=== PATIENT | female | born 1955 | race Caucasian/White ===

== ENCOUNTER 2018-10-24 06:50 | Inpatient (IN) | payer MEDICAID ==
[2018-10-24] MEDS: morphine 4 MG/ML VIAL IV (07:16)
[2018-10-24] MEDS: ONDANSETRON 4 MG INJ IV (07:16)
[2018-10-24] MEDS: KETOROLAC 15 MG INJ IV (08:20)
[2018-10-24] MEDS: DIAZEPAM 10 MG/2 ML SYG IV (08:20)
[2018-10-24] MEDS ORDERED: morphine 2 MG INJ IV (09:30)
[2018-10-24] MEDS ORDERED: ONDANSETRON 4 MG INJ IV (09:30)
[2018-10-24] MEDS ORDERED: ACETAMINOPHEN 325 MG TAB PO (09:30)
[2018-10-24] MEDS ORDERED: SODIUM CHLORIDE 0.9% 1L BAG IV (11:30)
[2018-10-24] MEDS: METHYLPREDNISOLONE 40 MG INJ IV ×2 (12:30→20:22)
[2018-10-24] MEDS: LIDOCAINE 5% PATCH TD (12:30)
[2018-10-24] MEDS: BACLOFEN 10 MG TAB PO ×2 (12:30→20:21)
[2018-10-24] MEDS: HYDROCODONE/APAP (5/325) TAB PO ×2 (12:31→20:00)
[2018-10-24] MEDS: FAMOTIDINE 20 MG TAB PO (20:21)
[2018-10-24] MEDS: HEPARIN 5,000 UNIT/1 ML VIAL SC (20:22)
[2018-10-24] MEDS: hydrALAzine 20 MG INJ IV (20:29)
[2018-10-24] MEDS: AMLODIPINE 10 MG TAB PO (23:28)
[2018-10-25] MEDS: BACLOFEN 10 MG TAB PO ×3 (08:54→20:33)
[2018-10-25] MEDS: FAMOTIDINE 20 MG TAB PO ×2 (08:54→20:33)
[2018-10-25] MEDS: METHYLPREDNISOLONE 40 MG INJ IV ×2 (08:54→20:32)
[2018-10-25] MEDS: HYDROCODONE/APAP (5/325) TAB PO (08:54)
[2018-10-25] MEDS: HEPARIN 5,000 UNIT/1 ML VIAL SC ×2 (08:55→20:37)
[2018-10-25] MEDS: LIDOCAINE 5% PATCH TD (08:56)
[2018-10-25] MEDS: AMLODIPINE 5 MG TAB PO ×2 (10:21→20:33)
[2018-10-25] MEDS: DOCUSATE SODIUM 100 MG CAP PO (12:04)
[2018-10-25] MEDS: hydrALAzine 20 MG INJ IV (13:57)
[2018-10-25] MEDS: ONDANSETRON 4 MG INJ IV (20:50)
[2018-10-26] MEDS: AMLODIPINE 5 MG TAB PO ×3 (08:37→20:35)
[2018-10-26] MEDS: FAMOTIDINE 20 MG TAB PO (08:38)
[2018-10-26] MEDS: BACLOFEN 10 MG TAB PO ×3 (08:38→15:48)
[2018-10-26] MEDS: METHYLPREDNISOLONE 40 MG INJ IV (08:38)
[2018-10-26] MEDS: ONDANSETRON 4 MG INJ IV (08:38)
[2018-10-26] MEDS: HEPARIN 5,000 UNIT/1 ML VIAL SC ×2 (08:38→20:37)
[2018-10-26] MEDS: LIDOCAINE 5% PATCH TD (08:39)
[2018-10-26] MEDS: ASPIRIN 81 MG TAB PO ×2 (09:30→15:47)
[2018-10-26] MEDS: ATORVASTATIN 80 MG TAB PO ×2 (09:30→15:47)
[2018-10-26] MEDS: CLOPIDOGREL 75 MG TAB PO ×2 (09:30→15:48)
[2018-10-26] MEDS: CALCITRIOL 0.25 MCG CAP PO ×2 (09:30→15:48)
[2018-10-26] MEDS ORDERED: ARTIFICIAL TEARS 15 ML OPH BOTH EYES (11:00)
[2018-10-26] MEDS: METOCLOPRAMIDE 5 MG TAB PO ×3 (11:30→17:30)
[2018-10-26] MEDS ORDERED: morphine 2 MG INJ IV (13:30)
[2018-10-26] MEDS: FLUTICASONE/VILANTEROL 100-25 INH (15:46)
[2018-10-26] MEDS: CYCLOBENZAPRINE 10 MG TAB PO (20:34)
[2018-10-26] MEDS ORDERED: BACLOFEN 10 MG TAB PO (21:00)
[2018-10-27] MEDS: CALCITRIOL 0.25 MCG CAP PO (08:16)
[2018-10-27] MEDS: METOCLOPRAMIDE 5 MG TAB PO (08:16)
[2018-10-27] MEDS: ASPIRIN 81 MG TAB PO (08:16)
[2018-10-27] MEDS: CYCLOBENZAPRINE 10 MG TAB PO ×2 (08:16→13:26)
[2018-10-27] MEDS: ATORVASTATIN 80 MG TAB PO (08:16)
[2018-10-27] MEDS: CLOPIDOGREL 75 MG TAB PO (08:16)
[2018-10-27] MEDS: FAMOTIDINE 20 MG TAB PO (08:16)
[2018-10-27] MEDS: PREGABALIN 50 MG CAP PO (08:16)
[2018-10-27] MEDS: AMLODIPINE 5 MG TAB PO ×2 (08:16→20:36)
[2018-10-27] MEDS: HEPARIN 5,000 UNIT/1 ML VIAL SC ×2 (08:17→20:37)
[2018-10-27] MEDS: METHYLPREDNISOLONE 40 MG INJ IV (08:17)
[2018-10-27] MEDS: LIDOCAINE 5% PATCH TD (08:20)
[2018-10-27] MEDS: FLUTICASONE/VILANTEROL 100-25 INH (08:22)
[2018-10-27] MEDS: MAGNESIUM SULFATE 2 GM/50 ML 50 ML IVPB (11:58)
[2018-10-28] MEDS: traMADol 50 MG TAB PO (07:44)
[2018-10-28] MEDS: FLUTICASONE/VILANTEROL 100-25 INH (08:27)
[2018-10-28] MEDS: FAMOTIDINE 20 MG TAB PO (08:28)
[2018-10-28] MEDS: ATORVASTATIN 80 MG TAB PO (08:28)
[2018-10-28] MEDS: LORAZEPAM 0.5 MG TAB PO (08:28)
[2018-10-28] MEDS: METHYLPREDNISOLONE 40 MG INJ IV (08:28)
[2018-10-28] MEDS: CALCITRIOL 0.25 MCG CAP PO (08:28)
[2018-10-28] MEDS: HYDROCODONE/APAP (5/325) TAB PO (08:28)
[2018-10-28] MEDS: ASPIRIN 81 MG TAB PO (08:28)
[2018-10-28] MEDS: PREGABALIN 50 MG CAP PO (08:28)
[2018-10-28] MEDS: CLOPIDOGREL 75 MG TAB PO (08:28)
[2018-10-28] MEDS: HEPARIN 5,000 UNIT/1 ML VIAL SC ×2 (08:33→20:25)
[2018-10-28] MEDS: LIDOCAINE 5% PATCH TD (09:00)
[2018-10-28] MEDS: AMLODIPINE 5 MG TAB PO ×2 (14:13→20:24)
[2018-10-28] MEDS: TIZANIDINE 4 MG TAB PO (20:24)
[2018-10-28] MEDS: LOPERAMIDE 2 MG CAP PO (22:44)
[2018-10-29] MEDS: CALCITRIOL 0.25 MCG CAP PO (08:33)
[2018-10-29] MEDS: CLOPIDOGREL 75 MG TAB PO (08:33)
[2018-10-29] MEDS: PREGABALIN 50 MG CAP PO ×2 (08:34→08:50)
[2018-10-29] MEDS: TIZANIDINE 4 MG TAB PO ×2 (08:34→12:19)
[2018-10-29] MEDS: FAMOTIDINE 20 MG TAB PO (08:34)
[2018-10-29] MEDS: ASPIRIN 81 MG TAB PO (08:34)
[2018-10-29] MEDS: AMLODIPINE 5 MG TAB PO ×2 (08:34→21:01)
[2018-10-29] MEDS: ATORVASTATIN 80 MG TAB PO (08:34)
[2018-10-29] MEDS: HEPARIN 5,000 UNIT/1 ML VIAL SC ×2 (08:37→21:04)
[2018-10-29] MEDS: LIDOCAINE 5% PATCH TD ×2 (08:39→12:48)
[2018-10-29] MEDS: FLUTICASONE/VILANTEROL 100-25 INH (08:39)
[2018-10-29] MEDS: METHYLPREDNISOLONE 40 MG INJ IV (08:45)
[2018-10-29] MEDS ORDERED: LIDOCAINE 5% PATCH TD (11:00)
[2018-10-29] MEDS: HYDROCODONE/APAP (5/325) TAB PO (12:19)
[2018-10-29] MEDS: LOPERAMIDE 2 MG CAP PO (12:45)
[2018-10-29] MEDS ORDERED: TIZANIDINE 4 MG TAB PO (13:00)
[2018-10-29] MEDS: METHOCARBAMOL 500 MG TAB PO ×2 (13:56→21:00)
[2018-10-30] MEDS: LOPERAMIDE 2 MG CAP PO ×2 (02:37→09:12)
[2018-10-30] MEDS: SOD CHLORIDE 0.9% 250 ML IV (03:07)
[2018-10-30] MEDS: AL HYDROX/MG HYDROX/SIMETH 30 ML CUP PO (06:05)
[2018-10-30] MEDS: GUAIFENESIN/CODEINE 5ML CUP PO ×2 (06:05→14:28)
[2018-10-30] MEDS: CLOPIDOGREL 75 MG TAB PO (09:03)
[2018-10-30] MEDS: ASPIRIN 81 MG TAB PO (09:03)
[2018-10-30] MEDS: FLUTICASONE/VILANTEROL 100-25 INH (09:03)
[2018-10-30] MEDS: CALCITRIOL 0.25 MCG CAP PO (09:03)
[2018-10-30] MEDS: METHOCARBAMOL 500 MG TAB PO (09:03)
[2018-10-30] MEDS: ATORVASTATIN 80 MG TAB PO (09:03)
[2018-10-30] MEDS: FAMOTIDINE 20 MG TAB PO (09:03)
[2018-10-30] MEDS: METHYLPREDNISOLONE 40 MG INJ IV (09:04)
[2018-10-30] MEDS: AMLODIPINE 5 MG TAB PO ×2 (09:04→21:34)
[2018-10-30] MEDS: HEPARIN 5,000 UNIT/1 ML VIAL SC ×2 (09:05→21:37)
[2018-10-30] MEDS: LIDOCAINE 5% PATCH TD ×2 (09:06→14:15)
[2018-10-30] MEDS: LORAZEPAM 0.5 MG TAB PO (09:12)
[2018-10-30] MEDS: DICLOFENAC SODIUM 1% GEL 100 GM TUBE TP ×4 (14:15→21:35)
[2018-10-30] MEDS: traMADol 50 MG TAB PO (17:50)
[2018-10-31] MEDS: GUAIFENESIN/CODEINE 5ML CUP PO (02:03)
[2018-10-31] MEDS: AL HYDROX/MG HYDROX/SIMETH 30 ML CUP PO ×2 (02:03→20:40)
[2018-10-31] MEDS: FLUTICASONE/VILANTEROL 100-25 INH (09:02)
[2018-10-31] MEDS: CALCIUM GLUCONATE 10% 1 GM in DEXTROSE 5% 100 ML IVPB (09:02)
[2018-10-31] MEDS: CALCITRIOL 0.25 MCG CAP PO ×2 (09:03→14:05)
[2018-10-31] MEDS: ASPIRIN 81 MG TAB PO (09:04)
[2018-10-31] MEDS: CLOPIDOGREL 75 MG TAB PO (09:04)
[2018-10-31] MEDS: ATORVASTATIN 80 MG TAB PO (09:04)
[2018-10-31] MEDS: MULTIVIT/CA CARB/B CMPLX/FA TAB PO (09:04)
[2018-10-31] MEDS: FAMOTIDINE 20 MG TAB PO (09:04)
[2018-10-31] MEDS: predniSONE 20 MG TAB PO (09:04)
[2018-10-31] MEDS: AMLODIPINE 5 MG TAB PO ×2 (09:05→20:33)
[2018-10-31] MEDS: HEPARIN 5,000 UNIT/1 ML VIAL SC ×2 (09:08→20:35)
[2018-10-31] MEDS: DICLOFENAC SODIUM 1% GEL 100 GM TUBE TP ×4 (09:09→20:36)
[2018-10-31] MEDS: traMADol 50 MG TAB PO ×2 (12:29→20:33)
[2018-10-31] MEDS: LIDOCAINE 5% PATCH TD ×2 (12:30→12:31)
[2018-10-31] MEDS: GABAPENTIN 100 MG CAP PO (20:33)
[2018-11-01] MEDS: hydrALAzine 20 MG INJ IV (02:40)
[2018-11-01] MEDS: MULTIVIT/CA CARB/B CMPLX/FA TAB PO (08:47)
[2018-11-01] MEDS: CLOPIDOGREL 75 MG TAB PO (08:47)
[2018-11-01] MEDS: FLUTICASONE/VILANTEROL 100-25 INH (08:48)
[2018-11-01] MEDS: GABAPENTIN 100 MG CAP PO ×2 (08:48→22:11)
[2018-11-01] MEDS: FAMOTIDINE 20 MG TAB PO (08:48)
[2018-11-01] MEDS: AMLODIPINE 5 MG TAB PO ×2 (08:48→22:10)
[2018-11-01] MEDS: ATORVASTATIN 80 MG TAB PO (08:48)
[2018-11-01] MEDS: ASPIRIN 81 MG TAB PO (08:48)
[2018-11-01] MEDS: GUAIFENESIN/CODEINE 5ML CUP PO (08:48)
[2018-11-01] MEDS: predniSONE 10 MG TAB PO (08:48)
[2018-11-01] MEDS: HEPARIN 5,000 UNIT/1 ML VIAL SC ×2 (08:49→22:12)
[2018-11-01] MEDS: LIDOCAINE 5% PATCH TD ×2 (08:50→08:51)
[2018-11-01] MEDS: DICLOFENAC SODIUM 1% GEL 100 GM TUBE TP ×4 (08:56→22:13)
[2018-11-01] MEDS: CALCITRIOL 0.25 MCG CAP PO (08:56)
[2018-11-01] MEDS: traMADol 50 MG TAB PO (19:55)
[2018-11-01] MEDS: ONDANSETRON 4 MG INJ IV (19:55)
[2018-11-01] MEDS: MAGNESIUM HYDROXIDE 30ML CUP PO (20:52)
[2018-11-01] MEDS: MIRTAZAPINE 15 MG TAB PO (22:10)
[2018-11-01] MEDS: CEFEPIME 1GM/50 ML (PMX) 50 ML IVPB (22:10)
[2018-11-01] MEDS ORDERED: [UNRECOGNIZED DRUG - REMARK] XX (23:45)
[2018-11-02] MEDS: DOCUSATE SODIUM 100 MG CAP PO (02:55)
[2018-11-02] MEDS: AL HYDROX/MG HYDROX/SIMETH 30 ML CUP PO (04:24)
[2018-11-02] MEDS ORDERED: BISACODYL (EC) 5 MG TAB PO (04:30)
[2018-11-02] MEDS: [UNRECOGNIZED DRUG - REMARK] XX ×2 (05:08→18:00)
[2018-11-02] MEDS: traMADol 50 MG TAB PO (08:57)
[2018-11-02] MEDS: LIDOCAINE 5% PATCH TD ×2 (08:58→09:00)
[2018-11-02] MEDS: CALCITRIOL 0.25 MCG CAP PO (09:00)
[2018-11-02] MEDS: AMLODIPINE 5 MG TAB PO ×2 (09:00→21:00)
[2018-11-02] MEDS: HEPARIN 5,000 UNIT/1 ML VIAL SC ×2 (09:00→21:00)
[2018-11-02] MEDS: FLUTICASONE/VILANTEROL 100-25 INH (09:00)
[2018-11-02] MEDS: DICLOFENAC SODIUM 1% GEL 100 GM TUBE TP ×4 (09:00→21:00)
[2018-11-02] MEDS: GABAPENTIN 100 MG CAP PO ×2 (09:00→21:00)
[2018-11-02] MEDS: ATORVASTATIN 80 MG TAB PO (09:00)
[2018-11-02] MEDS: ASPIRIN 81 MG TAB PO (09:00)
[2018-11-02] MEDS: FAMOTIDINE 20 MG TAB PO (09:00)
[2018-11-02] MEDS: MULTIVIT/CA CARB/B CMPLX/FA TAB PO (09:00)
[2018-11-02] MEDS: CLOPIDOGREL 75 MG TAB PO (09:00)
[2018-11-02] MEDS ORDERED: LEVOFLOXACIN 750 MG TABLET PO (10:00)
[2018-11-02] MEDS: predniSONE 20 MG TAB PO (10:30)
[2018-11-02] MEDS: PIPER-TAZO 2.25 GM (PMX) 50 ML IVPB ×2 (11:32→15:38)
[2018-11-02] MEDS: DEXTROSE 5%-0.45% NACL 1,000 ML IV (12:43)
[2018-11-02] MEDS ORDERED: ALBUTEROL/IPRATROPIUM (NEB) 3 ML AMP HHN (13:30)
[2018-11-02] MEDS: ALBUTEROL/IPRATROPIUM (NEB) 3 ML AMP HHN ×2 (14:00→20:00)
[2018-11-02] MEDS: ACETAMINOPHEN 1000MG/100ML IV 100 ML IVPB (14:15)
[2018-11-02] MEDS: IODIXANOL LOCM 100 ML BTL (16:47)
[2018-11-02] MEDS: SOD CHLORIDE 0.9% 100 ML (16:47)
[2018-11-02] MEDS ORDERED: MIDAZOLAM 1 MG/ML 2 ML INJ ×2 (20:14→20:15)
[2018-11-02] MEDS ORDERED: CEFEPIME 1GM/50 ML (PMX) 50 ML IVPB (21:00)
[2018-11-02] MEDS ORDERED: CEFEPIME HCL 0.5 GM in SOD CHLORIDE 0.9% 50 ML IVPB (21:00)
[2018-11-02] MEDS ORDERED: LIDOCAINE 2% (SDV) 5 ML INJ (22:59)
[2018-11-02] MEDS ORDERED: ETOMIDATE 20 MG INJ (22:59)
[2018-11-02] MEDS ORDERED: NEOSTIGMINE 3 MG/3 ML SYRINGE (22:59)
[2018-11-02] MEDS ORDERED: GLYCOPYRROLATE 0.4 MG INJ (22:59)
[2018-11-02] MEDS ORDERED: ROCURONIUM 50 MG INJ (22:59)
[2018-11-02] MEDS ORDERED: CEFAZOLIN 1 GM INJ (23:00)
[2018-11-02] MEDS ORDERED: metroNIDAZOLE 500 MG/NS (PMX) 100 ML IVPB (23:00)
[2018-11-02] MEDS: morphine 2 MG INJ IV (23:58)
[2018-11-03] MEDS ORDERED: EPHEDrine 25 MG/5 ML SYG IV
[2018-11-03] MEDS ORDERED: METOCLOPRAMIDE 10 MG INJ IV
[2018-11-03] MEDS ORDERED: FENTAnyl 50 MCG/ML VIAL IV
[2018-11-03] MEDS ORDERED: DIPHENHYDRAMINE 50 MG INJ IV
[2018-11-03] MEDS ORDERED: ALBUTEROL 0.083% (NEB) 2.5 MG/3 ML AMP HHN
[2018-11-03] MEDS: PIPER-TAZO 2.25 GM (PMX) 50 ML IVPB ×4 (00:03→21:21)
[2018-11-03] MEDS: ONDANSETRON 4 MG INJ IV ×2 (00:04→14:59)
[2018-11-03] MEDS: CALCIUM GLUCONATE 10% 2 GM in DEXTROSE 5% 100 ML IVPB (01:31)
[2018-11-03] MEDS: morphine 2 MG INJ IV ×4 (03:24→19:04)
[2018-11-03] MEDS: [UNRECOGNIZED DRUG - REMARK] XX ×2 (05:33→17:58)
[2018-11-03] MEDS: GABAPENTIN 100 MG CAP PO ×2 (10:52→21:21)
[2018-11-03] MEDS: ATORVASTATIN 80 MG TAB PO (10:53)
[2018-11-03] MEDS: FAMOTIDINE 20 MG TAB PO (10:53)
[2018-11-03] MEDS: CALCITRIOL 0.25 MCG CAP PO (10:53)
[2018-11-03] MEDS: MULTIVIT/CA CARB/B CMPLX/FA TAB PO (10:53)
[2018-11-03] MEDS: ASPIRIN 81 MG TAB PO (10:54)
[2018-11-03] MEDS: AMLODIPINE 5 MG TAB PO ×2 (10:54→21:20)
[2018-11-03] MEDS: HEPARIN 5,000 UNIT/1 ML VIAL SC ×2 (11:00→21:24)
[2018-11-03] MEDS: LIDOCAINE 5% PATCH TD ×2 (12:50→12:55)
[2018-11-03] MEDS: DICLOFENAC SODIUM 1% GEL 100 GM TUBE TP ×4 (12:56→21:21)
[2018-11-03] MEDS: ALBUTEROL/IPRATROPIUM (NEB) 3 ML AMP HHN ×2 (14:00→19:26)
[2018-11-03] MEDS: LORAZEPAM 0.5 MG TAB PO (14:59)
[2018-11-03] MEDS: DEXTROSE 5%-0.45% NACL 1,000 ML IV (15:23)
[2018-11-03] MEDS: BUDESONIDE (NEB) 0.5MG/2ML AMP HHN (20:42)
[2018-11-03] MEDS: HYDROCODONE/APAP (5/325) TAB PO (21:20)
[2018-11-04] MEDS: morphine 2 MG INJ IV ×3 (00:12→14:27)
[2018-11-04] MEDS: PIPER-TAZO 2.25 GM (PMX) 50 ML IVPB ×3 (05:29→21:54)
[2018-11-04] MEDS: ALBUTEROL/IPRATROPIUM (NEB) 3 ML AMP HHN ×3 (07:24→20:15)
[2018-11-04] MEDS: BUDESONIDE (NEB) 0.5MG/2ML AMP HHN ×2 (08:06→20:15)
[2018-11-04] MEDS: DICLOFENAC SODIUM 1% GEL 100 GM TUBE TP ×4 (09:00→21:58)
[2018-11-04] MEDS: ATORVASTATIN 80 MG TAB PO (09:23)
[2018-11-04] MEDS: FAMOTIDINE 20 MG TAB PO (09:23)
[2018-11-04] MEDS: ASPIRIN 81 MG TAB PO (09:23)
[2018-11-04] MEDS: AMLODIPINE 5 MG TAB PO ×2 (09:23→21:00)
[2018-11-04] MEDS: MULTIVIT/CA CARB/B CMPLX/FA TAB PO (09:23)
[2018-11-04] MEDS: GABAPENTIN 100 MG CAP PO ×2 (09:24→21:53)
[2018-11-04] MEDS: CALCITRIOL 0.25 MCG CAP PO (09:24)
[2018-11-04] MEDS: LIDOCAINE 5% PATCH TD ×2 (09:32→09:42)
[2018-11-04] MEDS: HEPARIN 5,000 UNIT/1 ML VIAL SC ×2 (09:39→21:56)
[2018-11-04] MEDS ORDERED: LEVOFLOXACIN 500 MG TAB PO (10:00)
[2018-11-04] MEDS: HYDROCODONE/APAP (5/325) TAB PO (21:54)
[2018-11-04] MEDS: DEXTROSE 5%-0.45% NACL 1,000 ML IV (21:54)
[2018-11-05] MEDS: DEXTROSE 5%-0.45% NACL 1,000 ML IV ×3 (00:30→19:46)
[2018-11-05] MEDS: PIPER-TAZO 2.25 GM (PMX) 50 ML IVPB ×3 (05:51→21:30)
[2018-11-05] MEDS: [UNRECOGNIZED DRUG - REMARK] XX ×2 (06:00→18:00)
[2018-11-05] MEDS: ALBUTEROL/IPRATROPIUM (NEB) 3 ML AMP HHN ×3 (08:50→19:42)
[2018-11-05] MEDS: BUDESONIDE (NEB) 0.5MG/2ML AMP HHN ×2 (08:51→19:42)
[2018-11-05] MEDS: LIDOCAINE 5% PATCH TD ×2 (09:00→09:23)
[2018-11-05] MEDS: morphine 2 MG INJ IV (09:12)
[2018-11-05] MEDS: DICLOFENAC SODIUM 1% GEL 100 GM TUBE TP ×4 (09:16→21:23)
[2018-11-05] MEDS: CALCITRIOL 0.25 MCG CAP PO (09:22)
[2018-11-05] MEDS: ASPIRIN 81 MG TAB PO (09:23)
[2018-11-05] MEDS: GABAPENTIN 100 MG CAP PO ×2 (09:23→21:20)
[2018-11-05] MEDS: ATORVASTATIN 80 MG TAB PO (09:23)
[2018-11-05] MEDS: FAMOTIDINE 20 MG TAB PO (09:23)
[2018-11-05] MEDS: MULTIVIT/CA CARB/B CMPLX/FA TAB PO (09:23)
[2018-11-05] MEDS: AMLODIPINE 5 MG TAB PO ×2 (09:24→21:20)
[2018-11-05] MEDS: HEPARIN 5,000 UNIT/1 ML VIAL SC ×2 (09:29→21:21)
[2018-11-05] MEDS: GUAIFENESIN/CODEINE 5ML CUP PO (21:19)
[2018-11-05] MEDS: HYDROCODONE/APAP (5/325) TAB PO (21:20)
[2018-11-05] MEDS: HYDROmorphONE 0.5 MG/0.5 ML SYG IV (23:18)
[2018-11-06] MEDS: PIPER-TAZO 2.25 GM (PMX) 50 ML IVPB ×3 (05:47→20:42)
[2018-11-06] MEDS: HYDROCODONE/APAP (5/325) TAB PO ×3 (05:49→21:44)
[2018-11-06] MEDS: [UNRECOGNIZED DRUG - REMARK] XX ×2 (06:00→17:26)
[2018-11-06] MEDS: GABAPENTIN 100 MG CAP PO ×2 (08:13→20:41)
[2018-11-06] MEDS: ASPIRIN 81 MG TAB PO (08:13)
[2018-11-06] MEDS: ATORVASTATIN 80 MG TAB PO (08:13)
[2018-11-06] MEDS: FAMOTIDINE 20 MG TAB PO (08:13)
[2018-11-06] MEDS: MULTIVIT/CA CARB/B CMPLX/FA TAB PO (08:13)
[2018-11-06] MEDS: AMLODIPINE 5 MG TAB PO ×2 (08:14→20:41)
[2018-11-06] MEDS: CALCITRIOL 0.25 MCG CAP PO (08:14)
[2018-11-06] MEDS: LIDOCAINE 5% PATCH TD ×2 (08:16→10:27)
[2018-11-06] MEDS: HEPARIN 5,000 UNIT/1 ML VIAL SC ×2 (08:29→20:43)
[2018-11-06] MEDS: DICLOFENAC SODIUM 1% GEL 100 GM TUBE TP ×4 (08:34→20:42)
[2018-11-06] MEDS: ALBUTEROL/IPRATROPIUM (NEB) 3 ML AMP HHN ×3 (08:44→20:00)
[2018-11-06] MEDS: BUDESONIDE (NEB) 0.5MG/2ML AMP HHN ×2 (08:44→20:00)
[2018-11-06] MEDS: DEXTROSE 5%-0.45% NACL 1,000 ML IV (16:09)
[2018-11-07] MEDS: PIPER-TAZO 2.25 GM (PMX) 50 ML IVPB ×2 (05:16→15:15)
[2018-11-07] MEDS: DEXTROSE 5%-0.45% NACL 1,000 ML IV (05:17)
[2018-11-07] MEDS: HYDROCODONE/APAP (5/325) TAB PO ×2 (05:18→11:41)
[2018-11-07] MEDS: [UNRECOGNIZED DRUG - REMARK] XX ×2 (05:37→17:38)
[2018-11-07] MEDS ORDERED: PENDING SANTYL ORDER FOR WOUND CARE XX (07:30)
[2018-11-07] MEDS: BUDESONIDE (NEB) 0.5MG/2ML AMP HHN ×2 (07:37→19:27)
[2018-11-07] MEDS: ALBUTEROL/IPRATROPIUM (NEB) 3 ML AMP HHN ×3 (07:37→19:27)
[2018-11-07] MEDS: FAMOTIDINE 20 MG TAB PO (08:46)
[2018-11-07] MEDS: HEPARIN 5,000 UNIT/1 ML VIAL SC ×2 (08:46→21:57)
[2018-11-07] MEDS: CALCITRIOL 0.25 MCG CAP PO (08:46)
[2018-11-07] MEDS: GABAPENTIN 100 MG CAP PO ×2 (08:46→21:56)
[2018-11-07] MEDS: MULTIVIT/CA CARB/B CMPLX/FA TAB PO (08:46)
[2018-11-07] MEDS: DICLOFENAC SODIUM 1% GEL 100 GM TUBE TP ×4 (08:48→21:56)
[2018-11-07] MEDS: ATORVASTATIN 80 MG TAB PO (08:48)
[2018-11-07] MEDS: ASPIRIN 81 MG TAB PO (08:48)
[2018-11-07] MEDS: AMLODIPINE 5 MG TAB PO ×2 (09:00→21:57)
[2018-11-07] MEDS: LIDOCAINE 5% PATCH TD ×2 (09:01→09:02)
[2018-11-08] MEDS: ACETAMINOPHEN 325 MG TAB PO (01:53)
[2018-11-08] MEDS: [UNRECOGNIZED DRUG - REMARK] XX ×2 (06:00→18:00)
[2018-11-08] MEDS: ALBUTEROL/IPRATROPIUM (NEB) 3 ML AMP HHN ×3 (07:18→20:00)
[2018-11-08] MEDS: BUDESONIDE (NEB) 0.5MG/2ML AMP HHN ×2 (07:18→20:00)
[2018-11-08] MEDS: GUAIFENESIN/CODEINE 5ML CUP PO (09:03)
[2018-11-08] MEDS: GABAPENTIN 100 MG CAP PO ×2 (09:03→21:55)
[2018-11-08] MEDS: ASPIRIN 81 MG TAB PO (09:03)
[2018-11-08] MEDS: ATORVASTATIN 80 MG TAB PO (09:03)
[2018-11-08] MEDS: MULTIVIT/CA CARB/B CMPLX/FA TAB PO (09:04)
[2018-11-08] MEDS: FAMOTIDINE 20 MG TAB PO (09:04)
[2018-11-08] MEDS: DICLOFENAC SODIUM 1% GEL 100 GM TUBE TP ×4 (09:04→21:00)
[2018-11-08] MEDS: AMLODIPINE 5 MG TAB PO ×2 (09:05→21:56)
[2018-11-08] MEDS: CALCITRIOL 0.25 MCG CAP PO (09:07)
[2018-11-08] MEDS: HEPARIN 5,000 UNIT/1 ML VIAL SC ×2 (09:09→21:56)
[2018-11-08] MEDS: LIDOCAINE 5% PATCH TD ×2 (09:14→09:16)
[2018-11-08] MEDS: HYDROCODONE/APAP (5/325) TAB PO ×2 (09:34→18:42)
[2018-11-09] MEDS: HYDROCODONE/APAP (5/325) TAB PO ×2 (02:10→14:00)
[2018-11-09] MEDS: [UNRECOGNIZED DRUG - REMARK] XX ×2 (05:57→17:47)
[2018-11-09] MEDS: ALBUTEROL/IPRATROPIUM (NEB) 3 ML AMP HHN ×3 (08:00→19:37)
[2018-11-09] MEDS: HEPARIN 5,000 UNIT/1 ML VIAL SC ×2 (08:34→21:21)
[2018-11-09] MEDS: MULTIVIT/CA CARB/B CMPLX/FA TAB PO (08:35)
[2018-11-09] MEDS: FAMOTIDINE 20 MG TAB PO (08:35)
[2018-11-09] MEDS: CALCITRIOL 0.25 MCG CAP PO (08:35)
[2018-11-09] MEDS: GABAPENTIN 100 MG CAP PO ×2 (08:35→21:12)
[2018-11-09] MEDS: ATORVASTATIN 80 MG TAB PO (08:35)
[2018-11-09] MEDS: ASPIRIN 81 MG TAB PO (08:35)
[2018-11-09] MEDS: LIDOCAINE 5% PATCH TD ×2 (08:37)
[2018-11-09] MEDS: DICLOFENAC SODIUM 1% GEL 100 GM TUBE TP ×4 (08:37→21:00)
[2018-11-09] MEDS: BUDESONIDE (NEB) 0.5MG/2ML AMP HHN ×2 (08:44→19:41)
[2018-11-09] MEDS: AMLODIPINE 5 MG TAB PO ×3 (09:00→21:00)
[2018-11-10] MEDS: ACETAMINOPHEN 325 MG TAB PO (02:36)
[2018-11-10] MEDS: [UNRECOGNIZED DRUG - REMARK] XX ×2 (06:00→14:05)
[2018-11-10] MEDS: ALBUTEROL/IPRATROPIUM (NEB) 3 ML AMP HHN ×3 (08:00→20:00)
[2018-11-10] MEDS: BUDESONIDE (NEB) 0.5MG/2ML AMP HHN ×2 (08:08→20:00)
[2018-11-10] MEDS: DICLOFENAC SODIUM 1% GEL 100 GM TUBE TP ×4 (09:00→21:00)
[2018-11-10] MEDS: CALCITRIOL 0.25 MCG CAP PO (09:47)
[2018-11-10] MEDS: ATORVASTATIN 80 MG TAB PO (09:47)
[2018-11-10] MEDS: GABAPENTIN 100 MG CAP PO ×2 (09:47→21:58)
[2018-11-10] MEDS: FAMOTIDINE 20 MG TAB PO (09:47)
[2018-11-10] MEDS: ASPIRIN 81 MG TAB PO (09:47)
[2018-11-10] MEDS: AMLODIPINE 5 MG TAB PO ×2 (09:47→21:59)
[2018-11-10] MEDS: MULTIVIT/CA CARB/B CMPLX/FA TAB PO (09:48)
[2018-11-10] MEDS: LIDOCAINE 5% PATCH TD ×2 (09:49→09:50)
[2018-11-10] MEDS: HEPARIN 5,000 UNIT/1 ML VIAL SC ×2 (09:51→22:00)
[2018-11-10] MEDS ORDERED: VANCOMYCIN IV PER PHARMACY XX (12:00)
[2018-11-10] MEDS: PIPER-TAZO 2.25 GM (PMX) 50 ML IVPB ×2 (14:02→22:19)
[2018-11-10] MEDS: VANCOMYCIN 1.5 GM/NS 250 ML 250 ML IVPB (14:04)
[2018-11-10] MEDS ORDERED: DIATR MEGLU/DIATRIZOATE SODIUM 120 ML BTL PO (22:30)
[2018-11-11] MEDS: HYDROCODONE/APAP (5/325) TAB PO ×2 (00:24→21:51)
[2018-11-11] MEDS: PIPER-TAZO 2.25 GM (PMX) 50 ML IVPB ×3 (05:31→21:31)
[2018-11-11] MEDS: [UNRECOGNIZED DRUG - REMARK] XX ×2 (05:40→18:00)
[2018-11-11] MEDS: ALBUTEROL/IPRATROPIUM (NEB) 3 ML AMP HHN ×3 (08:00→19:57)
[2018-11-11] MEDS: BUDESONIDE (NEB) 0.5MG/2ML AMP HHN ×2 (08:08→19:57)
[2018-11-11] MEDS: LIDOCAINE 5% PATCH TD ×2 (09:30→09:43)
[2018-11-11] MEDS: HEPARIN 5,000 UNIT/1 ML VIAL SC ×2 (09:37→21:35)
[2018-11-11] MEDS: FAMOTIDINE 20 MG TAB PO (09:38)
[2018-11-11] MEDS: ATORVASTATIN 80 MG TAB PO (09:38)
[2018-11-11] MEDS: MULTIVIT/CA CARB/B CMPLX/FA TAB PO (09:38)
[2018-11-11] MEDS: GABAPENTIN 100 MG CAP PO ×2 (09:38→21:31)
[2018-11-11] MEDS: CALCITRIOL 0.25 MCG CAP PO (09:39)
[2018-11-11] MEDS: IOHEXOL 14.3 MG(I)/ML (ADULT) BTL PO (09:43)
[2018-11-11] MEDS: DICLOFENAC SODIUM 1% GEL 100 GM TUBE TP ×4 (11:32→21:00)
[2018-11-11] MEDS: SOD CHLORIDE 0.9% 100 ML (12:21)
[2018-11-11] MEDS: IOHEXOL 300MG/ML 150 ML BTL (12:21)
[2018-11-11] MEDS: AMLODIPINE 5 MG TAB PO ×2 (16:18→21:31)
[2018-11-11] MEDS: ASPIRIN 81 MG TAB PO (16:19)
[2018-11-12] MEDS: DIPHENOXYLATE/ATROPINE TAB PO (01:32)
[2018-11-12] MEDS: PIPER-TAZO 2.25 GM (PMX) 50 ML IVPB ×3 (05:49→21:02)
[2018-11-12] MEDS: [UNRECOGNIZED DRUG - REMARK] XX ×2 (06:00→15:17)
[2018-11-12] MEDS: BUDESONIDE (NEB) 0.5MG/2ML AMP HHN ×2 (07:59→19:24)
[2018-11-12] MEDS: ALBUTEROL/IPRATROPIUM (NEB) 3 ML AMP HHN ×3 (07:59→19:23)
[2018-11-12] MEDS: ASPIRIN 81 MG TAB PO (09:00)
[2018-11-12] MEDS: AMLODIPINE 5 MG TAB PO ×2 (09:00→20:58)
[2018-11-12] MEDS: HEPARIN 5,000 UNIT/1 ML VIAL SC ×2 (09:00→20:57)
[2018-11-12] MEDS: ATORVASTATIN 80 MG TAB PO (09:00)
[2018-11-12] MEDS: CALCITRIOL 0.25 MCG CAP PO (09:00)
[2018-11-12] MEDS: GABAPENTIN 100 MG CAP PO ×2 (09:02→20:56)
[2018-11-12] MEDS: FAMOTIDINE 20 MG TAB PO (09:02)
[2018-11-12] MEDS: MULTIVIT/CA CARB/B CMPLX/FA TAB PO (09:02)
[2018-11-12] MEDS: LIDOCAINE 5% PATCH TD ×2 (09:04)
[2018-11-12] MEDS: DICLOFENAC SODIUM 1% GEL 100 GM TUBE TP ×4 (09:08→21:02)
[2018-11-12] MEDS ORDERED: VANCOMYCIN 1 GM 250 ML IVPB (11:00)
[2018-11-12] MEDS: GUAIFENESIN/CODEINE 5ML CUP PO (21:13)
[2018-11-13] MEDS: HYDROCODONE/APAP (5/325) TAB PO ×2 (02:06→06:02)
[2018-11-13] MEDS: [UNRECOGNIZED DRUG - REMARK] XX ×2 (06:00→18:00)
[2018-11-13] MEDS: PIPER-TAZO 2.25 GM (PMX) 50 ML IVPB (06:01)
[2018-11-13] MEDS: ALBUTEROL/IPRATROPIUM (NEB) 3 ML AMP HHN ×3 (07:51→20:00)
[2018-11-13] MEDS: BUDESONIDE (NEB) 0.5MG/2ML AMP HHN ×2 (07:51→20:00)
[2018-11-13] MEDS: HEPARIN 5,000 UNIT/1 ML VIAL SC ×2 (08:43→21:05)
[2018-11-13] MEDS: GUAIFENESIN/CODEINE 5ML CUP PO (08:44)
[2018-11-13] MEDS: ATORVASTATIN 80 MG TAB PO (08:45)
[2018-11-13] MEDS: FAMOTIDINE 20 MG TAB PO (08:45)
[2018-11-13] MEDS: ASPIRIN 81 MG TAB PO (08:45)
[2018-11-13] MEDS: DICLOFENAC SODIUM 1% GEL 100 GM TUBE TP ×4 (08:45→21:00)
[2018-11-13] MEDS: GABAPENTIN 100 MG CAP PO ×2 (08:45→21:03)
[2018-11-13] MEDS: AMLODIPINE 5 MG TAB PO ×2 (08:46→21:03)
[2018-11-13] MEDS: CALCITRIOL 0.25 MCG CAP PO (08:49)
[2018-11-13] MEDS: MULTIVIT/CA CARB/B CMPLX/FA TAB PO (08:49)
[2018-11-13] MEDS: LIDOCAINE 5% PATCH TD ×2 (09:00)
[2018-11-13] MEDS: VANCOMYCIN HCL 250 MG/5ML POSYG PO ×3 (12:46→23:50)
[2018-11-13] MEDS: FLUCONAZOLE 100 MG TAB PO (12:46)
[2018-11-13] MEDS: DIATR MEGLU/DIATRIZOATE SODIUM 120 ML BTL PO (17:24)
[2018-11-14] MEDS: VANCOMYCIN HCL 250 MG/5ML POSYG PO ×3 (05:46→17:26)
[2018-11-14] MEDS: [UNRECOGNIZED DRUG - REMARK] XX ×2 (05:48→17:26)
[2018-11-14] MEDS: BUDESONIDE (NEB) 0.5MG/2ML AMP HHN ×2 (07:19→19:37)
[2018-11-14] MEDS: ALBUTEROL/IPRATROPIUM (NEB) 3 ML AMP HHN ×3 (07:19→19:37)
[2018-11-14] MEDS: AMLODIPINE 5 MG TAB PO ×2 (09:00→21:42)
[2018-11-14] MEDS: FLUCONAZOLE 100 MG TAB PO (09:08)
[2018-11-14] MEDS: MULTIVIT/CA CARB/B CMPLX/FA TAB PO (09:08)
[2018-11-14] MEDS: CALCITRIOL 0.25 MCG CAP PO (09:08)
[2018-11-14] MEDS: GABAPENTIN 100 MG CAP PO ×2 (09:08→21:43)
[2018-11-14] MEDS: FAMOTIDINE 20 MG TAB PO (09:08)
[2018-11-14] MEDS: ASPIRIN 81 MG TAB PO (09:08)
[2018-11-14] MEDS: HEPARIN 5,000 UNIT/1 ML VIAL SC ×2 (09:09→21:44)
[2018-11-14] MEDS: ATORVASTATIN 80 MG TAB PO (09:12)
[2018-11-14] MEDS: LIDOCAINE 5% PATCH TD ×2 (09:12→09:13)
[2018-11-14] MEDS: DICLOFENAC SODIUM 1% GEL 100 GM TUBE TP ×4 (09:13→21:00)
[2018-11-14] MEDS: HYDROCODONE/APAP (5/325) TAB PO (09:35)
[2018-11-15] MEDS: VANCOMYCIN HCL 250 MG/5ML POSYG PO ×4 (00:20→17:09)
[2018-11-15] MEDS: HYDROCODONE/APAP (5/325) TAB PO (02:21)
[2018-11-15] MEDS: [UNRECOGNIZED DRUG - REMARK] XX ×2 (06:00→17:09)
[2018-11-15] MEDS: ALBUTEROL/IPRATROPIUM (NEB) 3 ML AMP HHN ×3 (08:00→19:46)
[2018-11-15] MEDS: AMLODIPINE 5 MG TAB PO ×2 (08:54→22:08)
[2018-11-15] MEDS: ASPIRIN 81 MG TAB PO (08:54)
[2018-11-15] MEDS: ATORVASTATIN 80 MG TAB PO (08:54)
[2018-11-15] MEDS: FLUCONAZOLE 100 MG TAB PO (08:54)
[2018-11-15] MEDS: CALCITRIOL 0.25 MCG CAP PO (08:54)
[2018-11-15] MEDS: MULTIVIT/CA CARB/B CMPLX/FA TAB PO (08:54)
[2018-11-15] MEDS: GABAPENTIN 100 MG CAP PO ×2 (08:54→22:08)
[2018-11-15] MEDS: FAMOTIDINE 20 MG TAB PO (08:54)
[2018-11-15] MEDS: LIDOCAINE 5% PATCH TD ×2 (08:55)
[2018-11-15] MEDS: DICLOFENAC SODIUM 1% GEL 100 GM TUBE TP ×4 (08:55→21:00)
[2018-11-15] MEDS: HEPARIN 5,000 UNIT/1 ML VIAL SC ×2 (08:59→22:09)
[2018-11-15] MEDS: BUDESONIDE (NEB) 0.5MG/2ML AMP HHN ×2 (09:00→19:46)
[2018-11-16] MEDS: VANCOMYCIN HCL 250 MG/5ML POSYG PO ×4 (00:13→18:49)
[2018-11-16] MEDS: [UNRECOGNIZED DRUG - REMARK] XX ×2 (05:48→18:00)
[2018-11-16] MEDS: HYDROCODONE/APAP (5/325) TAB PO ×2 (06:11→20:06)
[2018-11-16] MEDS: ALBUTEROL/IPRATROPIUM (NEB) 3 ML AMP HHN ×3 (08:00→20:00)
[2018-11-16] MEDS: FAMOTIDINE 20 MG TAB PO (08:53)
[2018-11-16] MEDS: MULTIVIT/CA CARB/B CMPLX/FA TAB PO (08:53)
[2018-11-16] MEDS: ASPIRIN 81 MG TAB PO (08:53)
[2018-11-16] MEDS: CALCITRIOL 0.25 MCG CAP PO (08:54)
[2018-11-16] MEDS: GABAPENTIN 100 MG CAP PO ×2 (08:54→20:06)
[2018-11-16] MEDS: ATORVASTATIN 80 MG TAB PO (08:55)
[2018-11-16] MEDS: FLUCONAZOLE 100 MG TAB PO (08:55)
[2018-11-16] MEDS: LIDOCAINE 5% PATCH TD ×2 (08:55→09:00)
[2018-11-16] MEDS: HEPARIN 5,000 UNIT/1 ML VIAL SC ×2 (08:56→20:09)
[2018-11-16] MEDS: DICLOFENAC SODIUM 1% GEL 100 GM TUBE TP ×4 (08:57→20:16)
[2018-11-16] MEDS: BUDESONIDE (NEB) 0.5MG/2ML AMP HHN ×2 (09:00→20:00)
[2018-11-16] MEDS: AMLODIPINE 5 MG TAB PO ×2 (09:00→20:05)
[2018-11-17] MEDS: VANCOMYCIN HCL 250 MG/5ML POSYG PO ×4 (00:47→17:34)
[2018-11-17] MEDS: [UNRECOGNIZED DRUG - REMARK] XX ×2 (05:50→17:06)
[2018-11-17] MEDS: ALBUTEROL/IPRATROPIUM (NEB) 3 ML AMP HHN ×3 (08:00→20:00)
[2018-11-17] MEDS: HYDROCODONE/APAP (5/325) TAB PO ×2 (08:20→17:59)
[2018-11-17] MEDS: MULTIVIT/CA CARB/B CMPLX/FA TAB PO (08:21)
[2018-11-17] MEDS: CALCITRIOL 0.25 MCG CAP PO (08:21)
[2018-11-17] MEDS: ASPIRIN 81 MG TAB PO (08:21)
[2018-11-17] MEDS: ATORVASTATIN 80 MG TAB PO (08:21)
[2018-11-17] MEDS: AMLODIPINE 5 MG TAB PO ×2 (08:22→21:29)
[2018-11-17] MEDS: FLUCONAZOLE 100 MG TAB PO (08:22)
[2018-11-17] MEDS: FAMOTIDINE 20 MG TAB PO (08:22)
[2018-11-17] MEDS: GABAPENTIN 100 MG CAP PO ×2 (08:22→21:24)
[2018-11-17] MEDS: HEPARIN 5,000 UNIT/1 ML VIAL SC ×2 (08:23→21:26)
[2018-11-17] MEDS: DICLOFENAC SODIUM 1% GEL 100 GM TUBE TP ×4 (08:24→21:00)
[2018-11-17] MEDS: BUDESONIDE (NEB) 0.5MG/2ML AMP HHN ×2 (09:00→20:00)
[2018-11-17] MEDS: LIDOCAINE 5% PATCH TD ×2 (10:12→10:13)
[2018-11-17] MEDS: HYDROmorphONE 0.5 MG/0.5 ML SYG IV (21:29)
[2018-11-18] MEDS: VANCOMYCIN HCL 250 MG/5ML POSYG PO ×5 (00:45→23:38)
[2018-11-18] MEDS: HYDROmorphONE 0.5 MG/0.5 ML SYG IV ×5 (03:56→23:42)
[2018-11-18] MEDS: [UNRECOGNIZED DRUG - REMARK] XX ×2 (05:16→18:00)
[2018-11-18] MEDS: ALBUTEROL/IPRATROPIUM (NEB) 3 ML AMP HHN ×4 (08:00→19:48)
[2018-11-18] MEDS: BUDESONIDE (NEB) 0.5MG/2ML AMP HHN ×3 (08:22→19:48)
[2018-11-18] MEDS: HEPARIN 5,000 UNIT/1 ML VIAL SC ×2 (09:00→20:51)
[2018-11-18] MEDS: ATORVASTATIN 80 MG TAB PO (09:00)
[2018-11-18] MEDS: ASPIRIN 81 MG TAB PO (09:00)
[2018-11-18] MEDS: LIDOCAINE 5% PATCH TD ×2 (09:00)
[2018-11-18] MEDS: DICLOFENAC SODIUM 1% GEL 100 GM TUBE TP ×4 (09:00→20:52)
[2018-11-18] MEDS: SOD CHLORIDE 0.9% 100 ML (13:55)
[2018-11-18] MEDS: IOHEXOL 300MG/ML 150 ML BTL (13:55)
[2018-11-18] MEDS: AMLODIPINE 5 MG TAB PO ×2 (17:25→20:50)
[2018-11-18] MEDS: FLUCONAZOLE 100 MG TAB PO (17:25)
[2018-11-18] MEDS: GABAPENTIN 100 MG CAP PO ×2 (17:28→20:53)
[2018-11-18] MEDS: FAMOTIDINE 20 MG TAB PO (17:28)
[2018-11-18] MEDS: CALCITRIOL 0.25 MCG CAP PO (17:29)
[2018-11-18] MEDS: MULTIVIT/CA CARB/B CMPLX/FA TAB PO (17:29)
[2018-11-19] MEDS: VANCOMYCIN HCL 250 MG/5ML POSYG PO ×4 (05:37→23:42)
[2018-11-19] MEDS: [UNRECOGNIZED DRUG - REMARK] XX ×2 (05:37→17:34)
[2018-11-19] MEDS: HYDROmorphONE 0.5 MG/0.5 ML SYG IV ×4 (05:41→23:55)
[2018-11-19] MEDS: ALBUTEROL/IPRATROPIUM (NEB) 3 ML AMP HHN ×4 (08:00→20:00)
[2018-11-19] MEDS: BUDESONIDE (NEB) 0.5MG/2ML AMP HHN ×2 (08:42→20:00)
[2018-11-19] MEDS: ATORVASTATIN 80 MG TAB PO ×2 (08:51→09:00)
[2018-11-19] MEDS: CALCITRIOL 0.25 MCG CAP PO ×2 (08:51→09:00)
[2018-11-19] MEDS: FLUCONAZOLE 100 MG TAB PO (08:51)
[2018-11-19] MEDS: ASPIRIN 81 MG TAB PO (08:51)
[2018-11-19] MEDS: GABAPENTIN 100 MG CAP PO ×3 (08:51→20:14)
[2018-11-19] MEDS: MULTIVIT/CA CARB/B CMPLX/FA TAB PO ×2 (08:51→09:00)
[2018-11-19] MEDS: HEPARIN 5,000 UNIT/1 ML VIAL SC ×2 (08:51→20:21)
[2018-11-19] MEDS: FAMOTIDINE 20 MG TAB PO (08:51)
[2018-11-19] MEDS: AMLODIPINE 5 MG TAB PO ×2 (08:52→20:14)
[2018-11-19] MEDS: DICLOFENAC SODIUM 1% GEL 100 GM TUBE TP ×5 (08:53→20:15)
[2018-11-19] MEDS: LIDOCAINE 5% PATCH TD ×2 (08:53)
[2018-11-19] MEDS: ONDANSETRON 4 MG INJ IV ×2 (08:58→20:14)
[2018-11-19] MEDS: DOCUSATE SODIUM 100 MG CAP PO ×2 (12:00→20:46)
[2018-11-19] MEDS: HYDROCODONE/APAP (5/325) TAB PO ×2 (17:59→22:12)
[2018-11-20] MEDS: HYDROCODONE/APAP (5/325) TAB PO ×4 (02:21→21:28)
[2018-11-20] MEDS: [UNRECOGNIZED DRUG - REMARK] XX ×2 (05:25→18:00)
[2018-11-20] MEDS: VANCOMYCIN HCL 250 MG/5ML POSYG PO ×3 (05:30→17:47)
[2018-11-20] MEDS: HYDROmorphONE 0.5 MG/0.5 ML SYG IV ×5 (05:31→22:41)
[2018-11-20] MEDS: ALBUTEROL/IPRATROPIUM (NEB) 3 ML AMP HHN ×3 (08:30→20:00)
[2018-11-20] MEDS: BUDESONIDE (NEB) 0.5MG/2ML AMP HHN ×2 (08:30→20:00)
[2018-11-20] MEDS: FLUCONAZOLE 100 MG TAB PO (08:36)
[2018-11-20] MEDS: AMLODIPINE 5 MG TAB PO ×2 (08:37→21:16)
[2018-11-20] MEDS: HEPARIN 5,000 UNIT/1 ML VIAL SC ×2 (08:38→21:15)
[2018-11-20] MEDS: LIDOCAINE 5% PATCH TD ×2 (08:49→08:50)
[2018-11-20] MEDS: ATORVASTATIN 80 MG TAB PO (09:00)
[2018-11-20] MEDS: ASPIRIN 81 MG TAB PO (09:00)
[2018-11-20] MEDS: GABAPENTIN 100 MG CAP PO ×2 (09:00→21:15)
[2018-11-20] MEDS: DOCUSATE SODIUM 100 MG CAP PO ×2 (09:00→21:00)
[2018-11-20] MEDS: DICLOFENAC SODIUM 1% GEL 100 GM TUBE TP ×4 (09:00→22:25)
[2018-11-20] MEDS: MULTIVIT/CA CARB/B CMPLX/FA TAB PO (09:00)
[2018-11-20] MEDS: CALCITRIOL 0.25 MCG CAP PO (09:00)
[2018-11-20] MEDS: ONDANSETRON 4 MG INJ IV ×2 (09:39→15:32)
[2018-11-20] MEDS: FAMOTIDINE 20 MG TAB PO (12:32)
[2018-11-20] MEDS: PANTOPRAZOLE (EC) 40 MG TAB PO (12:32)
[2018-11-20] MEDS: SUCRALFATE (100 MG/ML) 10ML CUP PO ×3 (12:32→21:16)
[2018-11-20] MEDS: FAMOTIDINE 20 MG INJ IV (12:33)
[2018-11-21] MEDS: VANCOMYCIN HCL 250 MG/5ML POSYG PO ×5 (00:34→23:34)
[2018-11-21] MEDS: HYDROmorphONE 0.5 MG/0.5 ML SYG IV ×4 (02:58→23:34)
[2018-11-21] MEDS: [UNRECOGNIZED DRUG - REMARK] XX ×2 (06:00→18:00)
[2018-11-21] MEDS: PANTOPRAZOLE (EC) 40 MG TAB PO (06:34)
[2018-11-21] MEDS: ALBUTEROL/IPRATROPIUM (NEB) 3 ML AMP HHN ×3 (08:00→19:16)
[2018-11-21] MEDS: BUDESONIDE (NEB) 0.5MG/2ML AMP HHN ×2 (08:37→19:16)
[2018-11-21] MEDS: HEPARIN 5,000 UNIT/1 ML VIAL SC ×2 (08:41→20:57)
[2018-11-21] MEDS: SUCRALFATE (100 MG/ML) 10ML CUP PO ×4 (08:46→20:54)
[2018-11-21] MEDS: ASPIRIN 81 MG TAB PO (08:46)
[2018-11-21] MEDS: DOCUSATE SODIUM 100 MG CAP PO ×2 (08:47→20:49)
[2018-11-21] MEDS: AMLODIPINE 5 MG TAB PO ×2 (08:47→20:55)
[2018-11-21] MEDS: ATORVASTATIN 80 MG TAB PO (08:47)
[2018-11-21] MEDS: FLUCONAZOLE 100 MG TAB PO (08:47)
[2018-11-21] MEDS: GABAPENTIN 100 MG CAP PO ×2 (08:47→20:54)
[2018-11-21] MEDS: MULTIVIT/CA CARB/B CMPLX/FA TAB PO (08:48)
[2018-11-21] MEDS: CALCITRIOL 0.25 MCG CAP PO (08:48)
[2018-11-21] MEDS: FAMOTIDINE 20 MG TAB PO (08:48)
[2018-11-21] MEDS: DICLOFENAC SODIUM 1% GEL 100 GM TUBE TP ×4 (08:49→20:59)
[2018-11-21] MEDS: LIDOCAINE 5% PATCH TD ×2 (08:49)
[2018-11-21] MEDS: ACETAMINOPHEN 325 MG TAB PO ×2 (11:32→20:02)
[2018-11-21] MEDS: ONDANSETRON 4 MG INJ IV (11:37)
[2018-11-22] MEDS: SOD CHLORIDE 0.9% 250 ML IV (02:40)
[2018-11-22] MEDS: HYDROmorphONE 0.5 MG/0.5 ML SYG IV ×5 (04:23→21:38)
[2018-11-22] MEDS: [UNRECOGNIZED DRUG - REMARK] XX ×2 (06:00→17:24)
[2018-11-22] MEDS: PANTOPRAZOLE (EC) 40 MG TAB PO (06:03)
[2018-11-22] MEDS: VANCOMYCIN HCL 250 MG/5ML POSYG PO ×3 (06:03→17:23)
[2018-11-22] MEDS: HYDROCODONE/APAP (5/325) TAB PO ×2 (06:19→18:40)
[2018-11-22] MEDS: LORAZEPAM 0.5 MG TAB PO (08:13)
[2018-11-22] MEDS: ACETAMINOPHEN 325 MG TAB PO ×2 (08:13→21:29)
[2018-11-22] MEDS: HEPARIN 5,000 UNIT/1 ML VIAL SC ×2 (08:33→21:22)
[2018-11-22] MEDS: SUCRALFATE (100 MG/ML) 10ML CUP PO ×4 (08:33→21:18)
[2018-11-22] MEDS: FAMOTIDINE 20 MG TAB PO (08:33)
[2018-11-22] MEDS: ASPIRIN 81 MG TAB PO (08:33)
[2018-11-22] MEDS: AMLODIPINE 5 MG TAB PO ×2 (08:34→21:00)
[2018-11-22] MEDS: LIDOCAINE 5% PATCH TD ×2 (08:34→08:35)
[2018-11-22] MEDS: CALCITRIOL 0.25 MCG CAP PO (08:35)
[2018-11-22] MEDS: MULTIVIT/CA CARB/B CMPLX/FA TAB PO (08:35)
[2018-11-22] MEDS: DICLOFENAC SODIUM 1% GEL 100 GM TUBE TP ×4 (08:35→21:43)
[2018-11-22] MEDS: GABAPENTIN 100 MG CAP PO (08:35)
[2018-11-22] MEDS: ATORVASTATIN 80 MG TAB PO (08:35)
[2018-11-22] MEDS: DOCUSATE SODIUM 100 MG CAP PO (08:36)
[2018-11-22] MEDS ORDERED: CEPASTAT LOZENGE MT (12:00)
[2018-11-22] MEDS: ATORVASTATIN 40 MG TAB PO (12:00)
[2018-11-22] MEDS: LACTOBACILLUS RHAMNOSUS CAP PO (17:23)
[2018-11-23] MEDS: VANCOMYCIN HCL 250 MG/5ML POSYG PO ×5 (00:14→23:54)
[2018-11-23] MEDS: HYDROmorphONE 0.5 MG/0.5 ML SYG IV ×5 (01:44→23:40)
[2018-11-23] MEDS: HYDROCODONE/APAP (10/325) TAB PO ×3 (04:27→16:54)
[2018-11-23] MEDS: PANTOPRAZOLE (EC) 40 MG TAB PO (05:54)
[2018-11-23] MEDS: [UNRECOGNIZED DRUG - REMARK] XX ×2 (06:00→17:02)
[2018-11-23] MEDS: HYDROCODONE/APAP (5/325) TAB PO (08:07)
[2018-11-23] MEDS: LIDOCAINE 5% PATCH TD ×2 (08:08→08:13)
[2018-11-23] MEDS: MULTIVIT/CA CARB/B CMPLX/FA TAB PO (08:09)
[2018-11-23] MEDS: LACTOBACILLUS RHAMNOSUS CAP PO ×3 (08:09→16:59)
[2018-11-23] MEDS: ATORVASTATIN 40 MG TAB PO (08:10)
[2018-11-23] MEDS: CALCITRIOL 0.25 MCG CAP PO (08:10)
[2018-11-23] MEDS: ASPIRIN 81 MG TAB PO (08:10)
[2018-11-23] MEDS: HEPARIN 5,000 UNIT/1 ML VIAL SC ×2 (08:12→21:00)
[2018-11-23] MEDS: DICLOFENAC SODIUM 1% GEL 100 GM TUBE TP ×4 (08:13→22:29)
[2018-11-23] MEDS: SUCRALFATE (100 MG/ML) 10ML CUP PO ×4 (08:21→21:00)
[2018-11-23] MEDS: AMLODIPINE 5 MG TAB PO ×2 (09:00→21:00)
[2018-11-23] MEDS ORDERED: AMIKACIN IV PER PHARMACY XX (11:30)
[2018-11-23] MEDS ORDERED: VANCOMYCIN IV PER PHARMACY XX (11:30)
[2018-11-23] MEDS: VANCOMYCIN 1.25 GM/NS 250 ML 250 ML IVPB (14:38)
[2018-11-23] MEDS: DEXTROSE 5%-0.45% NACL 1,000 ML IV (14:45)
[2018-11-23] MEDS: SOD CHLORIDE 0.9% 100 ML (16:49)
[2018-11-23] MEDS: IODIXANOL LOCM 100 ML BTL (16:59)
[2018-11-23] MEDS: AMIKACIN 425 MG in SOD CHLORIDE 0.9% 100 ML IVPB (18:31)
[2018-11-23] MEDS: IOHEXOL 14.3 MG(I)/ML (ADULT) BTL PO (20:45)
[2018-11-23] MEDS: IOHEXOL 300MG/ML 150 ML BTL (21:38)
[2018-11-24] MEDS: HYDROmorphONE 0.5 MG/0.5 ML SYG IV ×2 (03:37→09:35)
[2018-11-24] MEDS: VANCOMYCIN HCL 250 MG/5ML POSYG PO ×2 (06:00→12:00)
[2018-11-24] MEDS: [UNRECOGNIZED DRUG - REMARK] XX ×2 (06:00→17:59)
[2018-11-24] MEDS: PANTOPRAZOLE (EC) 40 MG TAB PO (06:00)
[2018-11-24] MEDS: LACTOBACILLUS RHAMNOSUS CAP PO ×3 (07:35→16:52)
[2018-11-24] MEDS: ASPIRIN 81 MG TAB PO (08:14)
[2018-11-24] MEDS: SUCRALFATE (100 MG/ML) 10ML CUP PO ×4 (08:14→20:31)
[2018-11-24] MEDS: ATORVASTATIN 40 MG TAB PO (08:15)
[2018-11-24] MEDS: CALCITRIOL 0.25 MCG CAP PO (08:15)
[2018-11-24] MEDS: MULTIVIT/CA CARB/B CMPLX/FA TAB PO (08:15)
[2018-11-24] MEDS: DICLOFENAC SODIUM 1% GEL 100 GM TUBE TP ×4 (08:16→21:42)
[2018-11-24] MEDS ORDERED: HEPARIN 1000 UNITS/ML 10 ML INJ IV ×2 (08:30)
[2018-11-24] MEDS: AMLODIPINE 5 MG TAB PO ×2 (08:39→20:31)
[2018-11-24] MEDS: LIDOCAINE 5% PATCH TD ×2 (08:39→08:40)
[2018-11-24] MEDS: HEPARIN 1000 UNITS/ML 10 ML INJ IV (08:49)
[2018-11-24] MEDS ORDERED: AMIKACIN 275 MG in SOD CHLORIDE 0.9% 100 ML IVPB (09:00)
[2018-11-24] MEDS: DEXTROSE 5%-0.45% NACL 1,000 ML IV ×2 (14:30→21:42)
[2018-11-24] MEDS: HYDROmorphONE 1 MG/ML SYG IV ×2 (15:06→20:21)
[2018-11-24] MEDS: metroNIDAZOLE 500 MG/NS (PMX) 100 ML IVPB ×2 (15:09→21:45)
[2018-11-25] MEDS: HYDROmorphONE 1 MG/ML SYG IV ×5 (00:35→20:25)
[2018-11-25] MEDS: [UNRECOGNIZED DRUG - REMARK] XX ×2 (03:26→17:08)
[2018-11-25] MEDS: PANTOPRAZOLE (EC) 40 MG TAB PO (05:06)
[2018-11-25] MEDS: metroNIDAZOLE 500 MG/NS (PMX) 100 ML IVPB ×3 (06:00→22:06)
[2018-11-25] MEDS: LACTOBACILLUS RHAMNOSUS CAP PO ×3 (07:35→16:03)
[2018-11-25] MEDS: ASPIRIN 81 MG TAB PO (09:00)
[2018-11-25] MEDS: CALCITRIOL 0.25 MCG CAP PO (09:00)
[2018-11-25] MEDS: AMLODIPINE 5 MG TAB PO ×2 (09:00→20:44)
[2018-11-25] MEDS: SUCRALFATE (100 MG/ML) 10ML CUP PO ×4 (09:00→20:44)
[2018-11-25] MEDS: MULTIVIT/CA CARB/B CMPLX/FA TAB PO (09:00)
[2018-11-25] MEDS: DICLOFENAC SODIUM 1% GEL 100 GM TUBE TP ×4 (09:00→20:24)
[2018-11-25] MEDS: ATORVASTATIN 40 MG TAB PO (09:00)
[2018-11-25] MEDS: LIDOCAINE 5% PATCH TD ×2 (09:20→09:21)
[2018-11-25] MEDS ORDERED: HEPARIN 1000 UNITS/ML 10 ML INJ IV (14:00)
[2018-11-25] MEDS: CEFEPIME 1GM/50 ML (PMX) 50 ML IVPB (15:32)
[2018-11-25] MEDS: HEPARIN 1000 UNITS/ML 10 ML INJ IV (15:34)
[2018-11-25] MEDS: HEPARIN 25000 UNITS/250 ML 250 ML IV (15:50)
[2018-11-26] MEDS: HYDROmorphONE 1 MG/ML SYG IV ×7 (00:02→23:47)
[2018-11-26] MEDS: DEXTROSE 5%-0.45% NACL 1,000 ML IV ×2 (05:16→22:25)
[2018-11-26] MEDS: PANTOPRAZOLE (EC) 40 MG TAB PO (06:00)
[2018-11-26] MEDS: [UNRECOGNIZED DRUG - REMARK] XX ×2 (06:00→17:02)
[2018-11-26] MEDS: metroNIDAZOLE 500 MG/NS (PMX) 100 ML IVPB ×3 (06:09→23:04)
[2018-11-26] MEDS: LACTOBACILLUS RHAMNOSUS CAP PO ×3 (08:00→17:02)
[2018-11-26] MEDS: SUCRALFATE (100 MG/ML) 10ML CUP PO ×4 (09:00→20:57)
[2018-11-26] MEDS: ATORVASTATIN 40 MG TAB PO (09:00)
[2018-11-26] MEDS: CALCITRIOL 0.25 MCG CAP PO (09:00)
[2018-11-26] MEDS: ASPIRIN 81 MG TAB PO (09:00)
[2018-11-26] MEDS: LIDOCAINE 5% PATCH TD ×2 (09:00)
[2018-11-26] MEDS: MULTIVIT/CA CARB/B CMPLX/FA TAB PO (09:00)
[2018-11-26] MEDS: AMLODIPINE 5 MG TAB PO ×2 (09:00→20:57)
[2018-11-26] MEDS: DICLOFENAC SODIUM 1% GEL 100 GM TUBE TP ×4 (09:31→21:00)
[2018-11-26] MEDS: HEPARIN 25000 UNITS/250 ML 250 ML IV (11:06)
[2018-11-26] MEDS: CEFEPIME 1GM/50 ML (PMX) 50 ML IVPB (18:41)
[2018-11-26] MEDS: POTASSIUM CHLORIDE 100 ML IVPB (20:54)
[2018-11-27] MEDS: POTASSIUM CHLORIDE 100 ML IVPB (01:06)
[2018-11-27] MEDS: HYDROmorphONE 1 MG/ML SYG IV ×7 (02:58→21:32)
[2018-11-27] MEDS: PANTOPRAZOLE (EC) 40 MG TAB PO (05:27)
[2018-11-27] MEDS: [UNRECOGNIZED DRUG - REMARK] XX ×2 (05:27→17:17)
[2018-11-27] MEDS: HEPARIN 25000 UNITS/250 ML 250 ML IV (05:52)
[2018-11-27] MEDS: metroNIDAZOLE 500 MG/NS (PMX) 100 ML IVPB ×3 (05:54→21:25)
[2018-11-27] MEDS: LACTOBACILLUS RHAMNOSUS CAP PO ×3 (08:00→17:17)
[2018-11-27] MEDS: LIDOCAINE 5% PATCH TD ×2 (09:00)
[2018-11-27] MEDS: DICLOFENAC SODIUM 1% GEL 100 GM TUBE TP ×4 (09:00→21:00)
[2018-11-27] MEDS: CALCITRIOL 0.25 MCG CAP PO (09:00)
[2018-11-27] MEDS: ATORVASTATIN 40 MG TAB PO (09:00)
[2018-11-27] MEDS: SUCRALFATE (100 MG/ML) 10ML CUP PO ×4 (09:00→21:00)
[2018-11-27] MEDS: MULTIVIT/CA CARB/B CMPLX/FA TAB PO (09:00)
[2018-11-27] MEDS: ASPIRIN 81 MG TAB PO (09:00)
[2018-11-27] MEDS: AMLODIPINE 5 MG TAB PO ×2 (09:00→21:00)
[2018-11-27] MEDS: CEFEPIME 1GM/50 ML (PMX) 50 ML IVPB (15:26)
[2018-11-27] MEDS: DEXTROSE 5%-0.45% NACL 1,000 ML IV (21:25)
[2018-11-28] MEDS: HYDROmorphONE 1 MG/ML SYG IV ×5 (00:32→18:25)
[2018-11-28] MEDS: HEPARIN 25000 UNITS/250 ML 250 ML IV (01:09)
[2018-11-28] MEDS: PANTOPRAZOLE (EC) 40 MG TAB PO (05:06)
[2018-11-28] MEDS: [UNRECOGNIZED DRUG - REMARK] XX ×2 (05:07→17:40)
[2018-11-28] MEDS: metroNIDAZOLE 500 MG/NS (PMX) 100 ML IVPB ×3 (05:31→23:52)
[2018-11-28] MEDS: LACTOBACILLUS RHAMNOSUS CAP PO ×3 (08:00→17:40)
[2018-11-28] MEDS: LIDOCAINE 5% PATCH TD ×2 (08:18)
[2018-11-28] MEDS: AMLODIPINE 5 MG TAB PO ×2 (09:00→21:00)
[2018-11-28] MEDS: CALCITRIOL 0.25 MCG CAP PO (09:00)
[2018-11-28] MEDS: DICLOFENAC SODIUM 1% GEL 100 GM TUBE TP ×4 (09:00→23:50)
[2018-11-28] MEDS: ASPIRIN 81 MG TAB PO (09:00)
[2018-11-28] MEDS: SUCRALFATE (100 MG/ML) 10ML CUP PO ×4 (09:00→21:00)
[2018-11-28] MEDS: MULTIVIT/CA CARB/B CMPLX/FA TAB PO (09:00)
[2018-11-28] MEDS: ATORVASTATIN 40 MG TAB PO (09:00)
[2018-11-28] MEDS: CEFEPIME 1GM/50 ML (PMX) 50 ML IVPB (15:13)
[2018-11-28] MEDS: POTASSIUM CHLORIDE 100 ML IVPB ×2 (15:34→23:58)
[2018-11-28] MEDS ORDERED: HEPARIN 1000 UNITS/ML 10 ML INJ ×2 (18:35)
[2018-11-28] MEDS ORDERED: NITROGLYCERIN (IC) 100 MCG/ML INJ (18:35)
[2018-11-28] MEDS ORDERED: MIDAZOLAM 1 MG/ML 2 ML INJ ×2 (18:35)
[2018-11-28] MEDS ORDERED: LIDOCAINE 1% (MDV) 20 ML INJ ×2 (18:35)
[2018-11-28] MEDS ORDERED: FENTAnyl 50 MCG/ML VIAL ×2 (18:35)
[2018-11-28] MEDS ORDERED: IODIXANOL LOCM 100 ML BTL ×4 (18:35)
[2018-11-28] MEDS ORDERED: HYDROmorphONE 2 MG/ML SYG (18:35)
[2018-11-28] MEDS: ALBUMIN HUMAN 25% 100 ML IV (20:36)
[2018-11-28] MEDS: DEXTROSE 5%-0.45% NACL 1,000 ML IV (23:52)
[2018-11-29] MEDS: HYDROmorphONE 1 MG/ML SYG IV ×6 (01:19→20:11)
[2018-11-29] MEDS: PANTOPRAZOLE (EC) 40 MG TAB PO (05:40)
[2018-11-29] MEDS: metroNIDAZOLE 500 MG/NS (PMX) 100 ML IVPB ×3 (05:41→21:27)
[2018-11-29] MEDS: [UNRECOGNIZED DRUG - REMARK] XX ×2 (06:00→18:00)
[2018-11-29] MEDS: LACTOBACILLUS RHAMNOSUS CAP PO ×3 (07:56→17:27)
[2018-11-29] MEDS: ASPIRIN 81 MG TAB PO (07:57)
[2018-11-29] MEDS: LIDOCAINE 5% PATCH TD ×2 (08:53)
[2018-11-29] MEDS: DICLOFENAC SODIUM 1% GEL 100 GM TUBE TP ×4 (08:54→21:28)
[2018-11-29] MEDS: SUCRALFATE (100 MG/ML) 10ML CUP PO ×4 (09:00→20:42)
[2018-11-29] MEDS: AMLODIPINE 5 MG TAB PO ×2 (09:00→20:42)
[2018-11-29] MEDS: CALCITRIOL 0.25 MCG CAP PO (09:00)
[2018-11-29] MEDS: MULTIVIT/CA CARB/B CMPLX/FA TAB PO (09:00)
[2018-11-29] MEDS: ATORVASTATIN 40 MG TAB PO (09:00)
[2018-11-29] MEDS: DEXTROSE 5%-0.45% NACL 1,000 ML IV (10:26)
[2018-11-29] MEDS: ACCU-CHEK XX ×3 (13:00→21:00)
[2018-11-29] MEDS: CEFEPIME 1GM/50 ML (PMX) 50 ML IVPB (15:09)
[2018-11-29] MEDS: TPN 1,000 ML IV (17:19)
[2018-11-30] MEDS: ACCU-CHEK XX ×6 (01:00→20:48)
[2018-11-30] MEDS: HYDROmorphONE 1 MG/ML SYG IV ×6 (03:30→22:29)
[2018-11-30] MEDS: [UNRECOGNIZED DRUG - REMARK] XX ×2 (05:19→18:00)
[2018-11-30] MEDS: PANTOPRAZOLE (EC) 40 MG TAB PO (05:19)
[2018-11-30] MEDS: metroNIDAZOLE 500 MG/NS (PMX) 100 ML IVPB ×2 (06:12→13:27)
[2018-11-30] MEDS: INSULIN ASPART [NOVOLOG] 3 ML PEN SC ×5 (06:39→20:47)
[2018-11-30] MEDS: LACTOBACILLUS RHAMNOSUS CAP PO ×3 (08:00→18:00)
[2018-11-30] MEDS: ATORVASTATIN 40 MG TAB PO (09:00)
[2018-11-30] MEDS: CALCITRIOL 0.25 MCG CAP PO (09:00)
[2018-11-30] MEDS: ASPIRIN 81 MG TAB PO (09:00)
[2018-11-30] MEDS: SUCRALFATE (100 MG/ML) 10ML CUP PO ×4 (09:00→20:46)
[2018-11-30] MEDS: AMLODIPINE 5 MG TAB PO ×2 (09:00→20:46)
[2018-11-30] MEDS: DICLOFENAC SODIUM 1% GEL 100 GM TUBE TP ×4 (12:31→20:49)
[2018-11-30] MEDS: LIDOCAINE 5% PATCH TD ×2 (12:42→12:43)
[2018-11-30] MEDS: CEFEPIME 1GM/50 ML (PMX) 50 ML IVPB (15:27)
[2018-11-30] MEDS: TPN 1,000 ML IV (16:25)
[2018-11-30] MEDS: FAT EMULSION 20% 250 ML IV (16:28)
[2018-11-30] MEDS: ASPIRIN 300 MG SUPP PR (16:52)
[2018-12-01] MEDS: ACCU-CHEK XX ×6 (01:00→20:22)
[2018-12-01] MEDS: INSULIN ASPART [NOVOLOG] 3 ML PEN SC ×6 (01:00→20:21)
[2018-12-01] MEDS: HYDROmorphONE 1 MG/ML SYG IV ×6 (02:06→20:12)
[2018-12-01] MEDS: [UNRECOGNIZED DRUG - REMARK] XX ×2 (05:49→17:35)
[2018-12-01] MEDS: PANTOPRAZOLE (EC) 40 MG TAB PO (05:49)
[2018-12-01] MEDS: LACTOBACILLUS RHAMNOSUS CAP PO ×2 (08:00→11:38)
[2018-12-01] MEDS: LIDOCAINE 5% PATCH TD ×2 (08:23)
[2018-12-01] MEDS: DICLOFENAC SODIUM 1% GEL 100 GM TUBE TP ×4 (08:26→20:16)
[2018-12-01] MEDS: AMLODIPINE 5 MG TAB PO (08:36)
[2018-12-01] MEDS: SUCRALFATE (100 MG/ML) 10ML CUP PO ×5 (08:36→20:16)
[2018-12-01] MEDS: ASPIRIN 300 MG SUPP PR (08:36)
[2018-12-01] MEDS: ATORVASTATIN 40 MG TAB PO (08:36)
[2018-12-01] MEDS: CALCITRIOL 0.25 MCG CAP PO (08:36)
[2018-12-01] MEDS: IOHEXOL 300MG/ML 150 ML BTL (08:58)
[2018-12-01] MEDS ORDERED: CLOPIDOGREL 75 MG TAB PO (09:00)
[2018-12-01] MEDS: TPN 1,000 ML IV (13:35)
[2018-12-01] MEDS: MAGNESIUM SULFATE 2 GM/50 ML 50 ML IVPB (18:10)
[2018-12-01] MEDS: POTASSIUM PHOSPHATE 15 MM in SOD CHLORIDE 0.9% 250 ML IVPB (20:26)
[2018-12-02] MEDS: ACCU-CHEK XX ×6 (01:00→21:00)
[2018-12-02] MEDS: INSULIN ASPART [NOVOLOG] 3 ML PEN SC ×6 (01:30→21:55)
[2018-12-02] MEDS: HYDROmorphONE 1 MG/ML SYG IV ×7 (01:31→21:45)
[2018-12-02] MEDS: TPN 1,000 ML IV ×2 (02:55→17:24)
[2018-12-02] MEDS: [UNRECOGNIZED DRUG - REMARK] XX ×2 (05:33→17:25)
[2018-12-02] MEDS ORDERED: ENOXAPARIN 30 MG/0.3 ML SYG SC (09:00)
[2018-12-02] MEDS: CALCITRIOL 0.25 MCG CAP PO (09:33)
[2018-12-02] MEDS: FAMOTIDINE 20 MG INJ IV (09:34)
[2018-12-02] MEDS: LIDOCAINE 5% PATCH TD ×2 (09:34)
[2018-12-02] MEDS: DICLOFENAC SODIUM 1% GEL 100 GM TUBE TP ×4 (09:35→21:52)
[2018-12-02] MEDS: SUCRALFATE (100 MG/ML) 10ML CUP PO ×3 (13:50→21:45)
[2018-12-02] MEDS: ALBUMIN HUMAN 25% 100 ML IV (15:28)
[2018-12-03] MEDS: HYDROmorphONE 1 MG/ML SYG IV ×8 (00:49→22:45)
[2018-12-03] MEDS: ACCU-CHEK XX ×4 (01:00→13:00)
[2018-12-03] MEDS: INSULIN ASPART [NOVOLOG] 3 ML PEN SC ×6 (01:34→21:39)
[2018-12-03] MEDS: TPN 1,000 ML IV (05:43)
[2018-12-03] MEDS: [UNRECOGNIZED DRUG - REMARK] XX ×2 (06:00→18:00)
[2018-12-03] MEDS: SUCRALFATE (100 MG/ML) 10ML CUP PO ×4 (08:46→21:37)
[2018-12-03] MEDS: CALCITRIOL 0.25 MCG CAP PO (08:46)
[2018-12-03] MEDS: FAMOTIDINE 20 MG INJ IV (08:46)
[2018-12-03] MEDS: DICLOFENAC SODIUM 1% GEL 100 GM TUBE TP ×4 (08:47→21:39)
[2018-12-03] MEDS: LIDOCAINE 5% PATCH TD ×2 (08:47→08:48)
[2018-12-03] MEDS: PANTOPRAZOLE (EC) 40 MG TAB PO ×2 (09:30→12:40)
[2018-12-03] MEDS: SODIUM PHOSPHATE 20 MEQ in SOD CHLORIDE 0.9% 250 ML IVPB (16:41)
[2018-12-03] MEDS: HYDROCODONE/APAP (10/325) TAB PO (17:26)
[2018-12-04] MEDS: HYDROmorphONE 1 MG/ML SYG IV ×7 (01:54→21:54)
[2018-12-04] MEDS: PANTOPRAZOLE (EC) 40 MG TAB PO (05:01)
[2018-12-04] MEDS: [UNRECOGNIZED DRUG - REMARK] XX ×2 (06:00→18:00)
[2018-12-04] MEDS: CALCITRIOL 0.25 MCG CAP PO (08:28)
[2018-12-04] MEDS: SUCRALFATE (100 MG/ML) 10ML CUP PO ×4 (08:28→20:27)
[2018-12-04] MEDS: LIDOCAINE 5% PATCH TD ×2 (08:29)
[2018-12-04] MEDS: INSULIN ASPART [NOVOLOG] 3 ML PEN SC ×3 (08:32→17:30)
[2018-12-04] MEDS: DICLOFENAC SODIUM 1% GEL 100 GM TUBE TP ×4 (08:32→20:29)
[2018-12-04] MEDS: HYDROCODONE/APAP (10/325) TAB PO ×2 (12:40→20:34)
[2018-12-04] MEDS ORDERED: FAT EMULSION 20% 250 ML IV (16:00)
[2018-12-05] MEDS: HYDROmorphONE 1 MG/ML SYG IV ×6 (01:59→23:27)
[2018-12-05] MEDS: [UNRECOGNIZED DRUG - REMARK] XX ×2 (04:57→18:00)
[2018-12-05] MEDS: PANTOPRAZOLE (EC) 40 MG TAB PO (06:58)
[2018-12-05] MEDS: LIDOCAINE 5% PATCH TD ×2 (09:00)
[2018-12-05] MEDS: CALCITRIOL 0.25 MCG CAP PO (09:28)
[2018-12-05] MEDS: SUCRALFATE (100 MG/ML) 10ML CUP PO ×4 (09:28→20:05)
[2018-12-05] MEDS: DICLOFENAC SODIUM 1% GEL 100 GM TUBE TP ×4 (09:29→20:06)
[2018-12-05] MEDS: ATORVASTATIN 40 MG TAB PO (20:05)
[2018-12-05] MEDS: BISACODYL (EC) 5 MG TAB PO (20:05)
[2018-12-05] MEDS: PEG/ELECTROLYTES 4L BTL PO (20:57)
[2018-12-06] MEDS: [UNRECOGNIZED DRUG - REMARK] XX ×2 (05:14→17:31)
[2018-12-06] MEDS: PANTOPRAZOLE (EC) 40 MG TAB PO (06:11)
[2018-12-06] MEDS: PEG/ELECTROLYTES 4L BTL PO (06:12)
[2018-12-06] MEDS: BISACODYL (EC) 5 MG TAB PO (06:12)
[2018-12-06] MEDS: CALCITRIOL 0.25 MCG CAP PO (08:35)
[2018-12-06] MEDS: SUCRALFATE (100 MG/ML) 10ML CUP PO ×4 (08:35→21:06)
[2018-12-06] MEDS: HYDROmorphONE 1 MG/ML SYG IV ×5 (09:00→22:59)
[2018-12-06] MEDS: DICLOFENAC SODIUM 1% GEL 100 GM TUBE TP ×4 (09:00→21:06)
[2018-12-06] MEDS: LIDOCAINE 5% PATCH TD ×2 (09:00)
[2018-12-06] MEDS ORDERED: PHENAZOPYRIDINE 100 MG TAB PO (18:00)
[2018-12-06] MEDS: LACTULOSE 30ML CUP PO ×3 (18:31→22:59)
[2018-12-06] MEDS: ATORVASTATIN 40 MG TAB PO (21:06)
[2018-12-07] MEDS: LACTULOSE 30ML CUP PO ×2 (01:04→02:53)
[2018-12-07] MEDS: [UNRECOGNIZED DRUG - REMARK] XX ×2 (06:00→17:13)
[2018-12-07] MEDS: PANTOPRAZOLE (EC) 40 MG TAB PO (06:21)
[2018-12-07] MEDS: MAGNESIUM CITRATE 300 ML BTL PO (06:21)
[2018-12-07] MEDS: HYDROmorphONE 1 MG/ML SYG IV ×4 (07:55→19:18)
[2018-12-07] MEDS: LIDOCAINE 5% PATCH TD ×2 (08:35→08:36)
[2018-12-07] MEDS: CALCITRIOL 0.25 MCG CAP PO (08:36)
[2018-12-07] MEDS: DICLOFENAC SODIUM 1% GEL 100 GM TUBE TP ×3 (08:36→17:00)
[2018-12-07] MEDS: MULTIVIT/CA CARB/B CMPLX/FA TAB PO (08:36)
[2018-12-07] MEDS: SUCRALFATE (100 MG/ML) 10ML CUP PO ×3 (08:37→17:00)
[2018-12-07] MEDS ORDERED: ONDANSETRON 4 MG INJ IV (17:30)
[2018-12-07] MEDS ORDERED: hydrALAzine 20 MG INJ IV (17:30)
[2018-12-07] MEDS ORDERED: FENTAnyl 50 MCG/ML VIAL IV (17:30)
[2018-12-07] MEDS ORDERED: LABETALOL HCL 20MG INJ IV (17:30)
[2018-12-07] MEDS ORDERED: EPHEDrine 25 MG/5 ML SYG IV (17:30)
[2018-12-07] MEDS ORDERED: morphine 2 MG INJ IV (17:30)
[2018-12-08] MEDS: DICLOFENAC SODIUM 1% GEL 100 GM TUBE TP ×5 (00:46→20:47)
[2018-12-08] MEDS: LACTOBACILLUS RHAMNOSUS CAP PO ×4 (00:46→17:03)
[2018-12-08] MEDS: SUCRALFATE (100 MG/ML) 10ML CUP PO ×5 (00:46→20:48)
[2018-12-08] MEDS: HYDROmorphONE 1 MG/ML SYG IV ×7 (00:46→23:04)
[2018-12-08] MEDS: ATORVASTATIN 40 MG TAB PO ×2 (00:46→20:48)
[2018-12-08] MEDS: [UNRECOGNIZED DRUG - REMARK] XX ×2 (05:43→17:03)
[2018-12-08] MEDS: PANTOPRAZOLE (EC) 40 MG TAB PO (05:47)
[2018-12-08] MEDS: CALCITRIOL 0.25 MCG CAP PO (08:58)
[2018-12-08] MEDS: LIDOCAINE 5% PATCH TD ×2 (08:58)
[2018-12-08] MEDS: MULTIVIT/CA CARB/B CMPLX/FA TAB PO (09:06)
[2018-12-08] MEDS: ASPIRIN 81 MG TAB PO (16:02)
[2018-12-08] MEDS: CLOPIDOGREL 75 MG TAB PO (16:03)
[2018-12-09] MEDS: HYDROmorphONE 1 MG/ML SYG IV ×5 (02:12→18:22)
[2018-12-09] MEDS: PANTOPRAZOLE (EC) 40 MG TAB PO (05:15)
[2018-12-09] MEDS: [UNRECOGNIZED DRUG - REMARK] XX ×2 (06:00→18:00)
[2018-12-09] MEDS: ASPIRIN 81 MG TAB PO (08:31)
[2018-12-09] MEDS: MULTIVIT/CA CARB/B CMPLX/FA TAB PO (08:31)
[2018-12-09] MEDS: CLOPIDOGREL 75 MG TAB PO (08:31)
[2018-12-09] MEDS: CALCITRIOL 0.25 MCG CAP PO (08:31)
[2018-12-09] MEDS: SUCRALFATE (100 MG/ML) 10ML CUP PO ×4 (08:31→20:24)
[2018-12-09] MEDS: LACTOBACILLUS RHAMNOSUS CAP PO ×4 (08:31→20:28)
[2018-12-09] MEDS: LIDOCAINE 5% PATCH TD ×2 (08:32→08:33)
[2018-12-09] MEDS: DICLOFENAC SODIUM 1% GEL 100 GM TUBE TP ×5 (08:33→20:31)
[2018-12-09] MEDS: NACL 0.9% 3 ML SYG IV (08:36)
[2018-12-09] MEDS: ALBUMIN HUMAN 25% 100 ML IV (17:04)
[2018-12-09] MEDS: ATORVASTATIN 40 MG TAB PO (20:24)
[2018-12-09] MEDS: HYDROCODONE/APAP (10/325) TAB PO (20:24)
[2018-12-10] MEDS: HYDROmorphONE 1 MG/ML SYG IV ×5 (00:28→20:07)
[2018-12-10] MEDS: HYDROCODONE/APAP (10/325) TAB PO ×2 (05:37→20:07)
[2018-12-10] MEDS: PANTOPRAZOLE (EC) 40 MG TAB PO (05:37)
[2018-12-10] MEDS: [UNRECOGNIZED DRUG - REMARK] XX ×2 (05:38→17:33)
[2018-12-10] MEDS: MULTIVIT/CA CARB/B CMPLX/FA TAB PO (09:22)
[2018-12-10] MEDS: SUCRALFATE (100 MG/ML) 10ML CUP PO ×4 (09:22→20:07)
[2018-12-10] MEDS: LACTOBACILLUS RHAMNOSUS CAP PO ×3 (09:22→17:26)
[2018-12-10] MEDS: CLOPIDOGREL 75 MG TAB PO (09:23)
[2018-12-10] MEDS: DICLOFENAC SODIUM 1% GEL 100 GM TUBE TP ×4 (09:23→20:08)
[2018-12-10] MEDS: CALCITRIOL 0.25 MCG CAP PO (09:23)
[2018-12-10] MEDS: ASPIRIN 81 MG TAB PO (09:23)
[2018-12-10] MEDS: LIDOCAINE 5% PATCH TD ×2 (09:25→09:30)
[2018-12-10] MEDS: ATORVASTATIN 40 MG TAB PO (20:07)
[2018-12-10] MEDS: HYDROmorphONE 2 MG/ML SYG IV (23:19)
[2018-12-10] MEDS: ONDANSETRON 4 MG INJ IV (23:44)
[2018-12-11] MEDS: HYDROmorphONE 2 MG/ML SYG IV ×6 (02:23→23:55)
[2018-12-11] MEDS: HYDROCODONE/APAP (10/325) TAB PO ×2 (02:24→17:55)
[2018-12-11] MEDS: PANTOPRAZOLE (EC) 40 MG TAB PO (05:05)
[2018-12-11] MEDS: [UNRECOGNIZED DRUG - REMARK] XX (06:00)
[2018-12-11] MEDS: CLOPIDOGREL 75 MG TAB PO (08:33)
[2018-12-11] MEDS: ASPIRIN 81 MG TAB PO (08:33)
[2018-12-11] MEDS: CALCITRIOL 0.25 MCG CAP PO (08:33)
[2018-12-11] MEDS: LIDOCAINE 5% PATCH TD ×2 (08:34→08:36)
[2018-12-11] MEDS: DICLOFENAC SODIUM 1% GEL 100 GM TUBE TP ×3 (08:34→20:14)
[2018-12-11] MEDS: SUCRALFATE (100 MG/ML) 10ML CUP PO ×3 (08:42→20:13)
[2018-12-11] MEDS: MULTIVIT/CA CARB/B CMPLX/FA TAB PO (08:42)
[2018-12-11] MEDS: LACTOBACILLUS RHAMNOSUS CAP PO ×2 (08:49→12:23)
[2018-12-11] MEDS: VANCOMYCIN HCL 250 MG/5ML POSYG PO (12:23)
[2018-12-11] MEDS: MAGNESIUM SULFATE 2 GM/50 ML 50 ML IVPB (12:48)
[2018-12-11] MEDS: BARIUM SULF 2% 450 ML BTL (BERRY SMOOTHIE) PO (14:29)
[2018-12-11] MEDS: ALBUMIN HUMAN 25% 100 ML IV (14:29)
[2018-12-11] MEDS: PIPER-TAZO 2.25 GM (PMX) 50 ML IVPB ×2 (15:31→22:37)
[2018-12-11] MEDS: IODIXANOL LOCM 100 ML BTL (16:44)
[2018-12-11] MEDS: SOD CHLORIDE 0.9% 100 ML (16:44)
[2018-12-11] MEDS: ATORVASTATIN 40 MG TAB PO (20:13)
[2018-12-12] MEDS: VANCOMYCIN HCL 250 MG/5ML POSYG PO ×6 (01:09→23:57)
[2018-12-12] MEDS: HYDROCODONE/APAP (10/325) TAB PO ×3 (02:31→23:55)
[2018-12-12] MEDS: HYDROmorphONE 2 MG/ML SYG IV ×6 (05:16→22:10)
[2018-12-12] MEDS: PIPER-TAZO 2.25 GM (PMX) 50 ML IVPB ×3 (05:27→22:12)
[2018-12-12] MEDS: PANTOPRAZOLE (EC) 40 MG TAB PO (05:27)
[2018-12-12] MEDS: [UNRECOGNIZED DRUG - REMARK] XX ×5 (06:00→18:50)
[2018-12-12] MEDS: LACTOBACILLUS RHAMNOSUS CAP PO ×5 (08:00→18:00)
[2018-12-12] MEDS: ASPIRIN 81 MG TAB PO (08:32)
[2018-12-12] MEDS: CALCITRIOL 0.25 MCG CAP PO (08:32)
[2018-12-12] MEDS: MULTIVIT/CA CARB/B CMPLX/FA TAB PO (08:33)
[2018-12-12] MEDS: LIDOCAINE 5% PATCH TD ×2 (08:34)
[2018-12-12] MEDS: SUCRALFATE (100 MG/ML) 10ML CUP PO ×4 (08:35→22:16)
[2018-12-12] MEDS: DICLOFENAC SODIUM 1% GEL 100 GM TUBE TP ×4 (08:36→21:00)
[2018-12-12] MEDS: ALBUMIN HUMAN 25% 100 ML IV (10:08)
[2018-12-12] MEDS: ATORVASTATIN 40 MG TAB PO (20:31)
[2018-12-13] MEDS: HYDROmorphONE 2 MG/ML SYG IV ×4 (02:47→21:58)
[2018-12-13] MEDS: [UNRECOGNIZED DRUG - REMARK] XX ×2 (06:00→18:00)
[2018-12-13] MEDS: VANCOMYCIN HCL 250 MG/5ML POSYG PO ×2 (06:47→12:00)
[2018-12-13] MEDS: PANTOPRAZOLE (EC) 40 MG TAB PO (06:47)
[2018-12-13] MEDS: PIPER-TAZO 2.25 GM (PMX) 50 ML IVPB ×3 (06:47→22:35)
[2018-12-13] MEDS: LACTOBACILLUS RHAMNOSUS CAP PO ×3 (08:00→18:00)
[2018-12-13] MEDS: CALCITRIOL 0.25 MCG CAP PO (08:02)
[2018-12-13] MEDS: SUCRALFATE (100 MG/ML) 10ML CUP PO ×4 (08:02→21:00)
[2018-12-13] MEDS: MULTIVIT/CA CARB/B CMPLX/FA TAB PO (08:02)
[2018-12-13] MEDS: ASPIRIN 81 MG TAB PO (08:02)
[2018-12-13] MEDS: LIDOCAINE 5% PATCH TD ×2 (08:51)
[2018-12-13] MEDS: DICLOFENAC SODIUM 1% GEL 100 GM TUBE TP ×4 (08:52→21:00)
[2018-12-13] MEDS: metroNIDAZOLE 500 MG/NS (PMX) 100 ML IVPB ×2 (15:15→22:35)
[2018-12-13] MEDS ORDERED: ROCURONIUM 50 MG INJ ×2 (16:05→17:53)
[2018-12-13] MEDS ORDERED: GLYCOPYRROLATE 0.4 MG INJ (16:05)
[2018-12-13] MEDS ORDERED: PROPOFOL 20 ML (16:05)
[2018-12-13] MEDS ORDERED: MIDAZOLAM 1 MG/ML 2 ML INJ (16:05)
[2018-12-13] MEDS ORDERED: CEFAZOLIN 1 GM INJ (16:05)
[2018-12-13] MEDS ORDERED: FENTAnyl 50 MCG/ML VIAL (16:06)
[2018-12-13] MEDS ORDERED: ROPIVACAINE 0.5 % 30 ML VIAL ×2 (16:06→18:00)
[2018-12-13] MEDS ORDERED: ONDANSETRON 4 MG INJ (16:06)
[2018-12-13] MEDS ORDERED: DEXAMETHASONE 4 MG/ML 5 ML INJ (16:06)
[2018-12-13] MEDS ORDERED: LIDOCAINE 1% (MPF) 30 ML INJ (16:12)
[2018-12-13] MEDS ORDERED: BUPIVACAINE 0.5%/EPI (SDV) 30 ML INJ (16:12)
[2018-12-13] MEDS ORDERED: KETOROLAC 30 MG INJ (16:38)
[2018-12-13] MEDS ORDERED: LABETALOL HCL 20MG INJ (18:31)
[2018-12-13] MEDS ORDERED: hydrALAzine 20 MG INJ (18:35)
[2018-12-13] MEDS: ATORVASTATIN 40 MG TAB PO (21:00)
[2018-12-13] MEDS ORDERED: PROPOFOL 100 ML IV (21:00)
[2018-12-13] MEDS: PROPOFOL 100 ML IV (21:34)
[2018-12-13] MEDS: PROPOFOL 40 ML (22:14)
[2018-12-13] MEDS: IOHEXOL 14.3 MG(I)/ML (ADULT) BTL PO (22:15)
[2018-12-14] MEDS: HYDROmorphONE 2 MG/ML SYG IV ×8 (01:18→23:23)
[2018-12-14] MEDS ORDERED: NORepinephrine 8MG/250 ML (PMX 250 ML IV (02:00)
[2018-12-14] MEDS: POTASSIUM CHLORIDE 100 ML IVPB (02:10)
[2018-12-14] MEDS: ALBUMIN HUMAN 25% 100 ML IV (02:38)
[2018-12-14] MEDS: PANTOPRAZOLE (EC) 40 MG TAB PO (05:39)
[2018-12-14] MEDS: [UNRECOGNIZED DRUG - REMARK] XX ×2 (06:00→18:00)
[2018-12-14] MEDS: metroNIDAZOLE 500 MG/NS (PMX) 100 ML IVPB ×3 (06:07→21:29)
[2018-12-14] MEDS: PIPER-TAZO 2.25 GM (PMX) 50 ML IVPB ×3 (06:07→21:30)
[2018-12-14] MEDS: SOD CHLORIDE 0.9% 250 ML IV* (07:02)
[2018-12-14] MEDS: LACTOBACILLUS RHAMNOSUS CAP PO ×3 (07:35→17:35)
[2018-12-14] MEDS: PROPOFOL 100 ML IV ×2 (08:45→19:50)
[2018-12-14] MEDS: CALCITRIOL 0.25 MCG CAP PO (09:00)
[2018-12-14] MEDS: LIDOCAINE 5% PATCH TD ×3 (09:00→16:15)
[2018-12-14] MEDS: MULTIVIT/CA CARB/B CMPLX/FA TAB PO (09:00)
[2018-12-14] MEDS: DICLOFENAC SODIUM 1% GEL 100 GM TUBE TP ×4 (09:00→23:30)
[2018-12-14] MEDS: SUCRALFATE (100 MG/ML) 10ML CUP PO ×4 (09:00→19:50)
[2018-12-14] MEDS: ACETAMINOPHEN 1000MG/100ML IV 100 ML IVPB ×3 (11:16→22:21)
[2018-12-14] MEDS: ATORVASTATIN 40 MG TAB PO (19:51)
[2018-12-15] MEDS: hydrALAzine 20 MG INJ IV (01:37)
[2018-12-15] MEDS: HYDROmorphONE 2 MG/ML SYG IV ×3 (03:34→21:25)
[2018-12-15] MEDS: metroNIDAZOLE 500 MG/NS (PMX) 100 ML IVPB ×3 (05:30→21:24)
[2018-12-15] MEDS: PANTOPRAZOLE (EC) 40 MG TAB PO (05:30)
[2018-12-15] MEDS: [UNRECOGNIZED DRUG - REMARK] XX ×2 (05:30→17:09)
[2018-12-15] MEDS: ACETAMINOPHEN 1000MG/100ML IV 100 ML IVPB ×3 (05:30→18:28)
[2018-12-15] MEDS: PIPER-TAZO 2.25 GM (PMX) 50 ML IVPB ×3 (05:30→21:25)
[2018-12-15] MEDS: LIDOCAINE 5% PATCH TD (09:00)
[2018-12-15] MEDS: SUCRALFATE (100 MG/ML) 10ML CUP PO ×4 (11:16→21:24)
[2018-12-15] MEDS: MULTIVIT/CA CARB/B CMPLX/FA TAB PO (11:16)
[2018-12-15] MEDS: CALCITRIOL 0.25 MCG CAP PO (11:17)
[2018-12-15] MEDS: LACTOBACILLUS RHAMNOSUS CAP PO ×3 (11:20→16:08)
[2018-12-15] MEDS: HYDROCODONE/APAP (10/325) TAB PO ×2 (16:09→23:34)
[2018-12-15] MEDS: ATORVASTATIN 40 MG TAB PO (21:24)
[2018-12-16] MEDS: ACETAMINOPHEN 1000MG/100ML IV 100 ML IVPB ×4 (03:00→18:38)
[2018-12-16] MEDS: HYDROmorphONE 2 MG/ML SYG IV ×3 (04:55→22:42)
[2018-12-16] MEDS: PANTOPRAZOLE (EC) 40 MG TAB PO (05:00)
[2018-12-16] MEDS: metroNIDAZOLE 500 MG/NS (PMX) 100 ML IVPB ×2 (05:00→13:46)
[2018-12-16] MEDS: PIPER-TAZO 2.25 GM (PMX) 50 ML IVPB ×2 (05:00→13:46)
[2018-12-16] MEDS: [UNRECOGNIZED DRUG - REMARK] XX ×2 (05:01→16:55)
[2018-12-16] MEDS: LACTOBACILLUS RHAMNOSUS CAP PO ×3 (08:01→18:34)
[2018-12-16] MEDS: CALCITRIOL 0.25 MCG CAP PO (08:01)
[2018-12-16] MEDS: SUCRALFATE (100 MG/ML) 10ML CUP PO ×3 (08:01→18:34)
[2018-12-16] MEDS: MULTIVIT/CA CARB/B CMPLX/FA TAB PO (08:01)
[2018-12-16] MEDS: LIDOCAINE 5% PATCH TD ×2 (08:02)
[2018-12-16] MEDS: HYDROCODONE/APAP (10/325) TAB PO (10:39)
[2018-12-16] MEDS ORDERED: IOHEXOL 14.3 MG(I)/ML (ADULT) BTL PO (15:30)
[2018-12-16] MEDS: BARIUM SULF 2% 450 ML BTL (BERRY SMOOTHIE) PO (18:34)
[2018-12-16] MEDS: IODIXANOL LOCM 100 ML BTL (22:59)
[2018-12-16] MEDS: SOD CHLORIDE 0.9% 100 ML (22:59)
[2018-12-17] MEDS: PIPER-TAZO 2.25 GM (PMX) 50 ML IVPB ×2 (00:17→06:31)
[2018-12-17] MEDS: metroNIDAZOLE 500 MG/NS (PMX) 100 ML IVPB ×4 (00:17→21:03)
[2018-12-17] MEDS: ATORVASTATIN 40 MG TAB PO ×2 (00:17→21:03)
[2018-12-17] MEDS: SUCRALFATE (100 MG/ML) 10ML CUP PO ×5 (00:17→21:02)
[2018-12-17] MEDS: ACETAMINOPHEN 1000MG/100ML IV 100 ML IVPB ×2 (03:05→12:32)
[2018-12-17] MEDS: HYDROmorphONE 2 MG/ML SYG IV ×5 (03:29→21:04)
[2018-12-17] MEDS: [UNRECOGNIZED DRUG - REMARK] XX ×2 (06:00→18:00)
[2018-12-17] MEDS: PANTOPRAZOLE (EC) 40 MG TAB PO (06:31)
[2018-12-17] MEDS: CALCITRIOL 0.25 MCG CAP PO (08:09)
[2018-12-17] MEDS: MULTIVIT/CA CARB/B CMPLX/FA TAB PO (08:09)
[2018-12-17] MEDS: LACTOBACILLUS RHAMNOSUS CAP PO ×3 (08:09→16:17)
[2018-12-17] MEDS ORDERED: GENTAMICIN IV PER PHARMACY XX (10:30)
[2018-12-17] MEDS: LIDOCAINE 5% PATCH TD ×2 (10:49→10:50)
[2018-12-17] MEDS: GENTAMICIN 120 MG/NS (PMX) 100 ML IVPB (12:33)
[2018-12-17] MEDS: hydrALAzine 20 MG INJ IV (16:18)
[2018-12-18] MEDS: HYDROmorphONE 2 MG/ML SYG IV ×4 (00:27→20:38)
[2018-12-18] MEDS: metroNIDAZOLE 500 MG/NS (PMX) 100 ML IVPB ×3 (05:22→22:32)
[2018-12-18] MEDS: PANTOPRAZOLE (EC) 40 MG TAB PO (05:22)
[2018-12-18] MEDS: [UNRECOGNIZED DRUG - REMARK] XX ×2 (05:25→18:00)
[2018-12-18] MEDS: LACTOBACILLUS RHAMNOSUS CAP PO ×3 (08:53→17:16)
[2018-12-18] MEDS: MULTIVIT/CA CARB/B CMPLX/FA TAB PO (08:53)
[2018-12-18] MEDS: CALCITRIOL 0.25 MCG CAP PO (08:54)
[2018-12-18] MEDS: LIDOCAINE 5% PATCH TD ×2 (08:54→08:55)
[2018-12-18] MEDS: SUCRALFATE (100 MG/ML) 10ML CUP PO ×4 (08:54→20:38)
[2018-12-18] MEDS: HYDROCODONE/APAP (10/325) TAB PO (15:33)
[2018-12-18] MEDS: POTASSIUM CHLORIDE (SR) 20 MEQ TAB PO (18:27)
[2018-12-18] MEDS: VANCOMYCIN HCL 250 MG/5ML POSYG PO (18:30)
[2018-12-18] MEDS: ATORVASTATIN 40 MG TAB PO (20:38)
[2018-12-19] MEDS: VANCOMYCIN HCL 250 MG/5ML POSYG PO ×4 (01:36→18:41)
[2018-12-19] MEDS: HYDROmorphONE 2 MG/ML SYG IV ×5 (02:02→22:12)
[2018-12-19] MEDS: [UNRECOGNIZED DRUG - REMARK] XX ×2 (06:00→18:00)
[2018-12-19] MEDS: PANTOPRAZOLE (EC) 40 MG TAB PO (06:27)
[2018-12-19] MEDS: metroNIDAZOLE 500 MG/NS (PMX) 100 ML IVPB ×3 (06:27→20:43)
[2018-12-19] MEDS: MULTIVIT/CA CARB/B CMPLX/FA TAB PO (08:31)
[2018-12-19] MEDS: LACTOBACILLUS RHAMNOSUS CAP PO ×3 (08:31→18:38)
[2018-12-19] MEDS: LIDOCAINE 5% PATCH TD ×2 (08:32→08:33)
[2018-12-19] MEDS: CALCITRIOL 0.25 MCG CAP PO (08:32)
[2018-12-19] MEDS: SUCRALFATE (100 MG/ML) 10ML CUP PO ×4 (10:36→20:43)
[2018-12-19] MEDS: HYDROCODONE/APAP (10/325) TAB PO ×2 (12:05→20:49)
[2018-12-19] MEDS: ATORVASTATIN 40 MG TAB PO (20:43)
[2018-12-19] MEDS: FAMOTIDINE 20 MG TAB PO (20:43)
[2018-12-20] MEDS: VANCOMYCIN HCL 250 MG/5ML POSYG PO ×4 (00:08→17:55)
[2018-12-20] MEDS: hydrALAzine 20 MG INJ IV (00:47)
[2018-12-20] MEDS: metroNIDAZOLE 500 MG/NS (PMX) 100 ML IVPB ×3 (05:32→21:23)
[2018-12-20] MEDS: HYDROmorphONE 2 MG/ML SYG IV ×4 (05:32→21:25)
[2018-12-20] MEDS: [UNRECOGNIZED DRUG - REMARK] XX ×2 (05:35→17:35)
[2018-12-20] MEDS: HYDROCODONE/APAP (10/325) TAB PO ×2 (07:59→15:53)
[2018-12-20] MEDS: ONDANSETRON 4 MG INJ IV (07:59)
[2018-12-20] MEDS: LIDOCAINE 5% PATCH TD ×2 (08:04→08:05)
[2018-12-20] MEDS: MULTIVIT/CA CARB/B CMPLX/FA TAB PO (08:04)
[2018-12-20] MEDS: LACTOBACILLUS RHAMNOSUS CAP PO ×3 (08:04→17:55)
[2018-12-20] MEDS: SUCRALFATE (100 MG/ML) 10ML CUP PO ×4 (08:04→21:23)
[2018-12-20] MEDS: CALCITRIOL 0.25 MCG CAP PO (08:04)
[2018-12-20] MEDS: [UNRECOGNIZED DRUG - REMARK] XX ×2 (12:00→20:00)
[2018-12-20] MEDS: [UNRECOGNIZED DRUG - REMARK] XX ×2 (12:00→20:00)
[2018-12-20] MEDS ORDERED: ONDANSETRON 4 MG INJ IV (16:30)
[2018-12-20] MEDS: MAGNESIUM SULFATE 2 GM/50 ML 50 ML IVPB (17:55)
[2018-12-20] MEDS: [UNRECOGNIZED DRUG - REMARK] XX (21:00)
[2018-12-20] MEDS: FAMOTIDINE 20 MG TAB PO (21:23)
[2018-12-20] MEDS: ATORVASTATIN 40 MG TAB PO (21:23)
[2018-12-21] MEDS: VANCOMYCIN HCL 250 MG/5ML POSYG PO ×4 (00:30→22:08)
[2018-12-21] MEDS: HYDROmorphONE 2 MG/ML SYG IV ×6 (01:18→22:43)
[2018-12-21] MEDS: HYDROCODONE/APAP (10/325) TAB PO ×3 (03:42→20:52)
[2018-12-21] MEDS: [UNRECOGNIZED DRUG - REMARK] XX ×3 (03:46→20:00)
[2018-12-21] MEDS: [UNRECOGNIZED DRUG - REMARK] XX ×3 (03:46→20:00)
[2018-12-21] MEDS: metroNIDAZOLE 500 MG/NS (PMX) 100 ML IVPB ×3 (05:48→22:25)
[2018-12-21] MEDS: [UNRECOGNIZED DRUG - REMARK] XX ×2 (05:50→12:42)
[2018-12-21] MEDS: LACTOBACILLUS RHAMNOSUS CAP PO ×3 (08:00→16:37)
[2018-12-21] MEDS: MULTIVIT/CA CARB/B CMPLX/FA TAB PO (08:17)
[2018-12-21] MEDS: SUCRALFATE (100 MG/ML) 10ML CUP PO ×4 (08:22→22:08)
[2018-12-21] MEDS: LIDOCAINE 5% PATCH TD ×2 (08:25→08:26)
[2018-12-21] MEDS: [UNRECOGNIZED DRUG - REMARK] XX ×2 (08:26→22:00)
[2018-12-21] MEDS: CALCITRIOL 0.25 MCG CAP PO (12:41)
[2018-12-21] MEDS: ATORVASTATIN 40 MG TAB PO (22:08)
[2018-12-21] MEDS: FAMOTIDINE 20 MG TAB PO (22:08)
[2018-12-22] MEDS: VANCOMYCIN HCL 250 MG/5ML POSYG PO ×4 (01:17→17:42)
[2018-12-22] MEDS: [UNRECOGNIZED DRUG - REMARK] XX ×3 (04:00→17:43)
[2018-12-22] MEDS: [UNRECOGNIZED DRUG - REMARK] XX ×3 (04:00→17:43)
[2018-12-22] MEDS: [UNRECOGNIZED DRUG - REMARK] XX ×2 (06:00→17:43)
[2018-12-22] MEDS: HYDROmorphONE 2 MG/ML SYG IV ×5 (06:23→20:55)
[2018-12-22] MEDS: metroNIDAZOLE 500 MG/NS (PMX) 100 ML IVPB (06:23)
[2018-12-22] MEDS: [UNRECOGNIZED DRUG - REMARK] XX ×2 (09:00→21:00)
[2018-12-22] MEDS: LACTOBACILLUS RHAMNOSUS CAP PO ×3 (09:02→17:42)
[2018-12-22] MEDS: MULTIVIT/CA CARB/B CMPLX/FA TAB PO (09:03)
[2018-12-22] MEDS: CALCITRIOL 0.25 MCG CAP PO (09:03)
[2018-12-22] MEDS: SUCRALFATE (100 MG/ML) 10ML CUP PO ×4 (09:03→20:54)
[2018-12-22] MEDS: LIDOCAINE 5% PATCH TD ×2 (09:04)
[2018-12-22] MEDS: GENTAMICIN 80 MG/NS (PMX) 50 ML IVPB (11:15)
[2018-12-22] MEDS: HYDROCODONE/APAP (10/325) TAB PO (11:15)
[2018-12-22] MEDS: ENOXAPARIN 30 MG/0.3 ML SYG SC (17:47)
[2018-12-22] MEDS: ATORVASTATIN 40 MG TAB PO (20:54)
[2018-12-22] MEDS: FAMOTIDINE 20 MG TAB PO (20:54)
[2018-12-23] MEDS: VANCOMYCIN HCL 250 MG/5ML POSYG PO ×4 (00:04→17:24)
[2018-12-23] MEDS: HYDROmorphONE 2 MG/ML SYG IV ×7 (00:04→23:32)
[2018-12-23] MEDS: [UNRECOGNIZED DRUG - REMARK] XX ×3 (04:00→20:00)
[2018-12-23] MEDS: [UNRECOGNIZED DRUG - REMARK] XX ×3 (04:00→20:00)
[2018-12-23] MEDS: [UNRECOGNIZED DRUG - REMARK] XX ×2 (06:00→17:25)
[2018-12-23] MEDS: [UNRECOGNIZED DRUG - REMARK] XX ×2 (09:00→21:00)
[2018-12-23] MEDS: SUCRALFATE (100 MG/ML) 10ML CUP PO ×4 (09:21→21:08)
[2018-12-23] MEDS: CALCITRIOL 0.25 MCG CAP PO (09:21)
[2018-12-23] MEDS: MULTIVIT/CA CARB/B CMPLX/FA TAB PO (09:21)
[2018-12-23] MEDS: LACTOBACILLUS RHAMNOSUS CAP PO ×3 (09:21→17:24)
[2018-12-23] MEDS: LIDOCAINE 5% PATCH TD ×2 (09:27→09:28)
[2018-12-23] MEDS: PANTOPRAZOLE 40 MG INJ IV ×2 (09:48→17:24)
[2018-12-23] MEDS: SOD CHLORIDE 0.9% 250 ML IV* (10:05)
[2018-12-23] MEDS: HYDROCODONE/APAP (10/325) TAB PO (15:04)
[2018-12-24] MEDS: HYDROCODONE/APAP (10/325) TAB PO ×2 (01:48→22:09)
[2018-12-24] MEDS: VANCOMYCIN HCL 250 MG/5ML POSYG PO ×4 (01:52→17:35)
[2018-12-24] MEDS: HYDROmorphONE 2 MG/ML SYG IV ×6 (03:44→22:50)
[2018-12-24] MEDS: [UNRECOGNIZED DRUG - REMARK] XX ×2 (04:00→11:40)
[2018-12-24] MEDS: [UNRECOGNIZED DRUG - REMARK] XX ×2 (04:00→11:40)
[2018-12-24] MEDS: PANTOPRAZOLE 40 MG INJ IV ×2 (06:05→17:35)
[2018-12-24] MEDS: [UNRECOGNIZED DRUG - REMARK] XX ×2 (08:00→17:35)
[2018-12-24] MEDS: MULTIVIT/CA CARB/B CMPLX/FA TAB PO (08:03)
[2018-12-24] MEDS: LACTOBACILLUS RHAMNOSUS CAP PO ×3 (08:03→17:35)
[2018-12-24] MEDS: CALCITRIOL 0.25 MCG CAP PO (08:03)
[2018-12-24] MEDS: SUCRALFATE (100 MG/ML) 10ML CUP PO ×4 (08:04→20:52)
[2018-12-24] MEDS: LIDOCAINE 5% PATCH TD ×2 (08:04)
[2018-12-24] MEDS: [UNRECOGNIZED DRUG - REMARK] XX ×2 (08:05→21:00)
[2018-12-24] MEDS: HYDROCODONE/APAP (5/325) TAB PO (17:49)
[2018-12-25] MEDS: VANCOMYCIN HCL 250 MG/5ML POSYG PO ×5 (00:24→23:45)
[2018-12-25] MEDS: HYDROmorphONE 2 MG/ML SYG IV ×6 (04:02→23:45)
[2018-12-25] MEDS: [UNRECOGNIZED DRUG - REMARK] XX ×2 (05:50→18:00)
[2018-12-25] MEDS: PANTOPRAZOLE (EC) 40 MG TAB PO ×2 (05:50→17:07)
[2018-12-25] MEDS: HYDROCODONE/APAP (10/325) TAB PO (06:14)
[2018-12-25] MEDS: LACTOBACILLUS RHAMNOSUS CAP PO ×3 (08:27→17:07)
[2018-12-25] MEDS: MULTIVIT/CA CARB/B CMPLX/FA TAB PO (08:27)
[2018-12-25] MEDS: SUCRALFATE (100 MG/ML) 10ML CUP PO ×4 (08:28→20:22)
[2018-12-25] MEDS: traMADol 50 MG TAB PO (08:28)
[2018-12-25] MEDS: CALCITRIOL 0.25 MCG CAP PO (08:28)
[2018-12-25] MEDS: DULOXETINE 30 MG CAP DR PO (08:28)
[2018-12-25] MEDS: LIDOCAINE 5% PATCH TD ×2 (08:29)
[2018-12-25] MEDS: [UNRECOGNIZED DRUG - REMARK] XX ×2 (09:00→21:00)
[2018-12-26] MEDS: HYDROCODONE/APAP (10/325) TAB PO ×2 (02:10→09:04)
[2018-12-26] MEDS: [UNRECOGNIZED DRUG - REMARK] XX ×2 (06:00→18:00)
[2018-12-26] MEDS: HYDROmorphONE 2 MG/ML SYG IV ×5 (06:12→21:06)
[2018-12-26] MEDS: PANTOPRAZOLE (EC) 40 MG TAB PO ×2 (06:12→17:39)
[2018-12-26] MEDS: VANCOMYCIN HCL 250 MG/5ML POSYG PO ×3 (06:14→17:43)
[2018-12-26] MEDS: [UNRECOGNIZED DRUG - REMARK] XX ×2 (09:00→21:00)
[2018-12-26] MEDS: CALCITRIOL 0.25 MCG CAP PO (09:04)
[2018-12-26] MEDS: SUCRALFATE (100 MG/ML) 10ML CUP PO ×4 (09:04→21:05)
[2018-12-26] MEDS: LACTOBACILLUS RHAMNOSUS CAP PO ×3 (09:04→17:39)
[2018-12-26] MEDS: MULTIVIT/CA CARB/B CMPLX/FA TAB PO (09:04)
[2018-12-26] MEDS: DULOXETINE 30 MG CAP DR PO (09:04)
[2018-12-26] MEDS: LIDOCAINE 5% PATCH TD ×2 (09:06)
[2018-12-26] MEDS ORDERED: ALBUMIN HUMAN 25% 100 ML IVPB (10:30)
[2018-12-26] MEDS: ALBUMIN HUMAN 25% 100 ML IV (10:51)
[2018-12-26] MEDS ORDERED: SOD CHLORIDE 0.9% 250 ML IV* (11:51)
[2018-12-26] MEDS: ATORVASTATIN 40 MG TAB PO (21:05)
[2018-12-27] MEDS: VANCOMYCIN HCL 250 MG/5ML POSYG PO ×5 (00:07→23:24)
[2018-12-27] MEDS: HYDROmorphONE 2 MG/ML SYG IV ×7 (00:08→22:26)
[2018-12-27] MEDS: PANTOPRAZOLE (EC) 40 MG TAB PO ×2 (05:11→17:55)
[2018-12-27] MEDS: [UNRECOGNIZED DRUG - REMARK] XX ×2 (05:11→17:55)
[2018-12-27] MEDS: [UNRECOGNIZED DRUG - REMARK] XX ×2 (09:00→21:00)
[2018-12-27] MEDS: SUCRALFATE (100 MG/ML) 10ML CUP PO ×4 (09:36→21:11)
[2018-12-27] MEDS: MULTIVIT/CA CARB/B CMPLX/FA TAB PO (09:37)
[2018-12-27] MEDS: LACTOBACILLUS RHAMNOSUS CAP PO ×3 (09:37→17:35)
[2018-12-27] MEDS: DULOXETINE 30 MG CAP DR PO (09:37)
[2018-12-27] MEDS: CALCITRIOL 0.25 MCG CAP PO (09:37)
[2018-12-27] MEDS: LIDOCAINE 5% PATCH TD ×2 (09:38→09:39)
[2018-12-27] MEDS: ATORVASTATIN 40 MG TAB PO (21:11)
[2018-12-27] MEDS: HYDROCODONE/APAP (10/325) TAB PO (21:11)
[2018-12-28] MEDS: HYDROmorphONE 2 MG/ML SYG IV ×5 (02:57→21:07)
[2018-12-28] MEDS: [UNRECOGNIZED DRUG - REMARK] XX ×2 (05:27→17:20)
[2018-12-28] MEDS: PANTOPRAZOLE (EC) 40 MG TAB PO ×2 (05:27→18:01)
[2018-12-28] MEDS: VANCOMYCIN HCL 250 MG/5ML POSYG PO ×4 (05:27→23:26)
[2018-12-28] MEDS: MULTIVIT/CA CARB/B CMPLX/FA TAB PO (08:41)
[2018-12-28] MEDS: DULOXETINE 30 MG CAP DR PO (08:41)
[2018-12-28] MEDS: CALCITRIOL 0.25 MCG CAP PO (08:42)
[2018-12-28] MEDS: LACTOBACILLUS RHAMNOSUS CAP PO ×4 (08:42→20:52)
[2018-12-28] MEDS: LIDOCAINE 5% PATCH TD ×2 (08:42→08:43)
[2018-12-28] MEDS: SUCRALFATE (100 MG/ML) 10ML CUP PO ×4 (08:42→20:53)
[2018-12-28] MEDS: [UNRECOGNIZED DRUG - REMARK] XX ×2 (08:58→21:00)
[2018-12-28] MEDS: HYDROCODONE/APAP (10/325) TAB PO (12:26)
[2018-12-28] MEDS: ATORVASTATIN 40 MG TAB PO (20:52)
[2018-12-29] MEDS: HYDROCODONE/APAP (10/325) TAB PO ×2 (03:44→12:35)
[2018-12-29] MEDS: [UNRECOGNIZED DRUG - REMARK] XX ×2 (06:00→18:00)
[2018-12-29] MEDS: PANTOPRAZOLE (EC) 40 MG TAB PO ×2 (06:57→17:11)
[2018-12-29] MEDS: VANCOMYCIN HCL 250 MG/5ML POSYG PO ×3 (06:57→17:11)
[2018-12-29] MEDS: [UNRECOGNIZED DRUG - REMARK] XX (09:00)
[2018-12-29] MEDS: traMADol 50 MG TAB PO ×2 (09:32→17:11)
[2018-12-29] MEDS: DULOXETINE 30 MG CAP DR PO (09:33)
[2018-12-29] MEDS: SUCRALFATE (100 MG/ML) 10ML CUP PO ×3 (09:33→17:11)
[2018-12-29] MEDS: CALCITRIOL 0.25 MCG CAP PO (09:33)
[2018-12-29] MEDS: MULTIVIT/CA CARB/B CMPLX/FA TAB PO (09:33)
[2018-12-29] MEDS: LIDOCAINE 5% PATCH TD ×2 (09:34)
[2018-12-29] MEDS: LACTOBACILLUS RHAMNOSUS CAP PO ×2 (12:34→17:11)
== END 2018-12-29 20:23 | disposition home health service (06) | DRG 329 ==
LOC: ICU 11-02 13:10 → PP2 11-06 10:10 → 2NE 11-26 04:15 → ICU 12-13 20:39 → 6WM 12-15 12:27 → PP2 12-21 06:50 → E/R 06:50 → PP2 09:11
PROC: 0DBL0ZZ Excision of Transverse Colon, Open Approach (ICD-10-PCS; principal; 2018-11-02 19:30)
PROC: 0WJP4ZZ Inspection of Gastrointestinal Tract, Percutaneous Endoscopic Approach (ICD-10-PCS; 2018-11-02 19:30)
PROC: BF101ZZ Fluoroscopy of Bile Ducts using Low Osmolar Contrast (ICD-10-PCS; 2018-11-02 19:30)
PROC: 0DB80ZZ Excision of Small Intestine, Open Approach (ICD-10-PCS; 2018-11-02 20:08)
PROC: 04753ZZ Dilation of Superior Mesenteric Artery, Percutaneous Approach (ICD-10-PCS; 2018-11-02 20:08)
PROC: 0DDN8ZX Extraction of Sigmoid Colon, Via Natural or Artificial Opening Endoscopic, Diagnostic (ICD-10-PCS; 2018-11-02 20:08)
PROC: 5A1D70Z Performance of Urinary Filtration, Intermittent, Less than 6 Hours Per Day (ICD-10-PCS; 2018-11-02 20:08)
PROC: B4041ZZ Plain Radiography of Superior Mesenteric Artery using Low Osmolar Contrast (ICD-10-PCS; 2018-11-02 20:08)
PROC: 0DB68ZX Excision of Stomach, Via Natural or Artificial Opening Endoscopic, Diagnostic (ICD-10-PCS; 2018-11-02 20:08)
PROC: 0DBG8ZX Excision of Left Large Intestine, Via Natural or Artificial Opening Endoscopic, Diagnostic (ICD-10-PCS; 2018-11-02 20:08)
DX: K55.1 Chronic vascular disorders of intestine (principal); N18.6 End stage renal disease; K63.1 Perforation of intestine (nontraumatic); A41.9 Sepsis, unspecified organism; J95.821 Acute postprocedural respiratory failure; J69.0 Pneumonitis due to inhalation of food and vomit; K63.0 Abscess of intestine; B37.49 Other urogenital candidiasis; I12.0 Hypertensive chronic kidney disease with stage 5 chronic kidney disease or end stage renal disease; K91.30 Postprocedural intestinal obstruction, unspecified as to partial versus complete; E44.1 Mild protein-calorie malnutrition; K92.1 Melena; J98.11 Atelectasis; A04.72 Enterocolitis due to Clostridium difficile, not specified as recurrent; K63.89 Other specified diseases of intestine; M54.16 Radiculopathy, lumbar region; Z99.2 Dependence on renal dialysis; B96.89 Other specified bacterial agents as the cause of diseases classified elsewhere; E87.6 Hypokalemia; I10 Essential (primary) hypertension; Z68.26 Body mass index [BMI] 26.0-26.9, adult; E83.51 Hypocalcemia; Z53.31 Laparoscopic surgical procedure converted to open procedure; I25.10 Atherosclerotic heart disease of native coronary artery without angina pectoris; I16.0 Hypertensive urgency; G89.29 Other chronic pain; M54.41 Lumbago with sciatica, right side; D63.8 Anemia in other chronic diseases classified elsewhere; I70.0 Atherosclerosis of aorta; R09.02 Hypoxemia; R10.10 Upper abdominal pain, unspecified; K29.70 Gastritis, unspecified, without bleeding
CPT/HCPCS: 36415; 36430; 36600; 71045; 71260; 72148; 74018; 74176; 74177; 74250; 75635; 75726; 80048; 80053; 80061; 80069; 80202; 81001; 82270; 82306; 82803; 82962; 83036; 83605; 83615; 83690; 83735; 84100; 84134; 84443; 84478; 85014; 85018; 85025; 85610; 85730; 86644; 86703; 86704; 86706; 86709; 86803; 86850; 86900; 86901; 86920; 86945; 87040-91; 87045; 87075; 87081; 87086; 87177; 87205; 87338; 87340; 88304; 88305; 88307; 88312; 90935; 93005; 93970; 93971; 94002; 94003; 94640; 94664; 94770; 96374; 96375; 97110; 97116; 97162; 97164; 97167; 97530; 97535; 99285-25; G0378

== ENCOUNTER 2018-12-30 18:16 | Emergency (ER) | payer MEDICAID ==
[2018-12-30] MEDS ORDERED: SOD CHLORIDE 0.9% 500 ML IV (18:39)
[2018-12-30] MEDS: LORAZEPAM 0.5 MG TAB PO (18:51)
[2018-12-30] MEDS: KETOROLAC 15 MG INJ IV (18:52)
== END 2018-12-30 20:59 | disposition home or self-care (01) ==
LOC: E/R 18:16
DX: I12.0 Hypertensive chronic kidney disease with stage 5 chronic kidney disease or end stage renal disease (principal); N18.6 End stage renal disease; Z79.01 Long term (current) use of anticoagulants; Z79.82 Long term (current) use of aspirin; Z79.84 Long term (current) use of oral hypoglycemic drugs; Z99.2 Dependence on renal dialysis
CPT/HCPCS: 36415; 74176; 80053; 83690; 85025; 96374; 99285-25

== ENCOUNTER 2018-12-31 12:20 | Emergency (ER) | payer MEDICAID ==
[2018-12-31] MEDS: morphine 4 MG/ML VIAL IV (12:56)
[2018-12-31] MEDS: ACETAMINOPHEN 500 MG TAB PO (18:10)
[2019-01-01] MEDS: IBUPROFEN 600 MG TAB PO (00:46)
== END 2019-01-01 01:20 | disposition home or self-care (01) ==
LOC: E/R 01-01 01:20
DX: R10.30 Lower abdominal pain, unspecified (principal); I12.0 Hypertensive chronic kidney disease with stage 5 chronic kidney disease or end stage renal disease; N18.6 End stage renal disease; Z99.2 Dependence on renal dialysis; Z79.82 Long term (current) use of aspirin; Z79.02 Long term (current) use of antithrombotics/antiplatelets
CPT/HCPCS: 74176; 80053; 83605; 83690; 85025; 96374; 99285-25